=== PATIENT | female | born 1990 | race Caucasian/White ===

== ENCOUNTER 2023-06-25 17:56 | Emergency (ER) | payer OTHER, SELFPAY ==
[2023-06-25 18:00] VITALS: BP 126/95; PULSE 96; RESP 18; TEMP 36.4; O2SAT 98; BMI 34.8
--- NOTE | 2023-06-25 18:05 | XR_ITS ---
The [address] [address] Patient Name: EM VALLEJO MRN: [id number] date: 1990 Sex: F Assigned Patient Location: ED.MAIN Current Patient Location: ER Accession/Order Number: [id number] Exam Date: 06/25/2023 18:43 Report Date: 06/25/2023 19:26 At the request of: FRANSISCA GUTIERREZ Procedure: XR knee RT 4V EXAM: XR knee RT 4V HISTORY: pain COMPARISON: None. TECHNIQUE: Views of the right knee. FINDINGS: No acute displaced fracture or dislocation. No significant joint space narrowing. There is a joint effusion. No bony destruction. XR/XR knee RT 4V IMPRESSION: No acute bony abnormality. Joint effusion. Electronically authenticated by: CORNELIO TORRES Date: 06/25/2023 19:26
--- NOTE | 2023-06-25 18:13 | ED.LOWEXI1 ---
HPI - Extremity Injury (Lower) General Chief Complaint: Extremity Injury, Lower Stated Complaint: KNEE PAIN Time Seen by Provider: 06/25/23 18:05 History of Present Illness HPI Narrative: Patient is a 32-year-old female who presents to the emergency department for the evaluation of right knee pain. She states pain began one week ago and has worsened in the last several days. She denies any mechanism of injury or trauma. She reports significant pain with weightbearing. She has not had any redness, drainage. No medications taken prior to arrival. Pain is located in the anterolateral aspect of the right knee. Pain is worse with flexion and extension of the right knee. Patient has not seen her primary care provider or specialist for this pain, she is tearful at initial interview. She is not concerned for . Related Data Previous Rx's Medication Instructions Recorded ketorolac 10 mg tablet 10 mg PO TID PRN pain #10 tabs 06/25/23 methocarbamol 750 mg tablet 750 mg PO TID PRN pain #20 tabs 06/25/23 methylprednisolone 4 mg tablets in See Rx Instructions .Route 06/25/23 a dose pack (Medrol (Amos)) .COMPLEX #21 ea Allergies Allergy/AdvReac Type Severity Reaction Status Date / Time CECLOR Allergy Unknown Uncoded 06/25/23 18:03 Review of Systems ROS Constitutional Denies: fever or chills Ears, nose, mouth, and throat Denies: throat pain or neck pain Respiratory Denies: shortness of breath Gastrointestinal Denies: nausea or vomiting Musculoskeletal Reports: extremity pain and limited range of motion; Denies: back pain or neck pain Integumentary/Breast Denies: rash Neurological Denies: headache Hematologic/Lymphatic Denies: easy bruising PFSH PFSH Social History Smoking status: Current every day smoker Exam Narrative Exam Narrative: Gen.: Awake, alert, in no distress Head: Normocephalic, atraumatic ENT: Moist mucous membranes Respiratory: No respiratory distress Extremities: Right knee with mild joint effusion noted, limited flexion and extension due to pain with diffuse tenderness of the right knee. 2+ right DP pulse. No tenderness of the right calf or ankle. No obvious deformity Psych: Tearful Neuro: No focal neuro deficit Skin: Warm, dry, intact Constitutional Vital Signs, click to edit/add: Last Vital Signs Temp 97.6 F 06/25/23 18:00 Pulse 96 H 06/25/23 18:00 Resp 18 06/25/23 18:00 BP 126/95 H 06/25/23 18:00 Pulse Ox 98 06/25/23 18:00 O2 Del Method Room Air 06/25/23 18:00 Course Vital Signs Vital signs: Vital Signs Temperature 97.6 F 06/25/23 18:00 Pulse Rate 96 H 06/25/23 18:00 Respiratory Rate 18 06/25/23 18:00 Blood Pressure 126/95 H 06/25/23 18:00 Pulse Oximetry 98 06/25/23 18:00 Oxygen Delivery Method Room Air 06/25/23 18:00 Temperature 97.6 F 06/25/23 18:00 Pulse Rate 96 H 06/25/23 18:00 Respiratory Rate 18 06/25/23 18:00 Blood Pressure 126/95 H 06/25/23 18:00 Pulse Oximetry 98 06/25/23 18:00 Oxygen Delivery Method Room Air 06/25/23 18:00 MDM - Extremity Injury (Lower) MDM Narrative Medical decision making narrative: Exam is consistent with soft tissue pain, x-rays of the right knee with no evidence of fracture or dislocation. Patient placed in an Bridger wrap, knee immobilizer and given crutches. She was provided with a work note an orthopedic referral. She'll be started on NSAIDs, muscle relaxants and Medrol Dosepak. Return to the Emergency Room if symptoms change or worsen. She is neurovascularly intact at discharge. Medical Records Attestation: I reviewed the patient's medical records. Imaging Data X-ray right knee: Attestation: I personally reviewed and interpreted this imaging study as follows: My impression: NAD Discharge Plan Discharge Chief Complaint: Extremity Injury, Lower Clinical Impression: Pain in right knee Patient Disposition: Home, Self-Care Time of Disposition Decision: 18:47 Condition: Good Mode of Transportation: Private Vehicle Prescriptions / Home Meds: New ketorolac 10 mg tablet 10 mg PO TID PRN (Reason: pain) Qty: 10 0RF methocarbamol 750 mg tablet 750 mg PO TID PRN (Reason: pain) Qty: 20 0RF methylprednisolone [Medrol (Amos)] 4 mg tablets,dose pack See Rx Instructions .ROUTE .COMPLEX Qty: 21 0RF Rx Instructions: Taper as directed Instructions: Knee Pain (ED) Additional Instructions: Follow up with orthopedics - Dr. Guzman - [phone] or [facility] [phone] Stand Alone Forms: Portal Instructions Referrals: Physician,Non-Staff, MD [Primary Care Provider] - 1 week Discharge Date/Time: 06/25/23 19:05
[2023-06-25] MEDS: KETOROLAC TROMETHAMINE 60 MG/2 ML VIAL IM (18:33)
--- NOTE | 2023-06-25 19:35 | PC.NURSE ---
19:00 catarina wrap knee immbolizer and crutches provided and placed. Circulation intact prior to and after placement.
== END 2023-06-25 19:05 | disposition home or self-care (01) ==
PROVIDERS: Emergency Provider Emergency Medicine
DX: M25.561 Pain in right knee (principal); F17.210 Nicotine dependence, cigarettes, uncomplicated
CPT/HCPCS: 73564; 96372; 99284

== ENCOUNTER 2024-01-23 11:48 | Emergency (ER) | payer OTHER, SELFPAY ==
[2024-01-23 12:02] VITALS: BP 130/69; PULSE 95; RESP 18; TEMP 36.8; O2SAT 100; BMI 31.2
--- NOTE | 2024-01-23 12:07 | XR_ITS ---
The [address] [address] Patient Name: EM VALLEJO MRN: [id number] date: 1990 Sex: F Assigned Patient Location: ER Current [facility] Accession/Order Number: [id number] Exam Date: 01/23/2024 12:35 Report Date: 01/23/2024 12:56 At the request of: ANTIONE BAUTISTA Procedure: XR knee TYESHA 4V EXAM: XR knee TYESHA 4V HISTORY: swelling bilat bilateral knee pain COMPARISON: Right knee study dated 06/25/2023, left knee study dated 09/24/2016 TECHNIQUE: 4 views of the right knee were obtained. FINDINGS: No definite acute fracture or dislocation. Minimal medial spurring. Minimal posterior patellar spurring. No evidence of sizable suprapatellar joint effusion. No significant soft tissue swelling. 3 views of the left knee were obtained, patellar view could not be obtained due to patient inability to bend the knee. FINDINGS: No definite acute fracture or dislocation. Minimal medial spurring. Small area of sclerosis in the medial femoral condyle compatible with bone island. No evidence of sizable suprapatellar joint effusion. Mild soft tissue swelling suggested anteriorly. XR/XR knee TYESHA 4V IMPRESSION: Bilateral knee study demonstrates degenerative changes as described. Mild soft tissue swelling suggested anteriorly on the left. Follow-up as needed. Electronically authenticated by: JAUN BLANKENSHIP Date: 01/23/2024 12:56
--- NOTE | 2024-01-23 13:16 | US_ITS ---
The [address] [address] Patient Name: EM VALLEJO MRN: [id number] date: 1990 Sex: F Assigned Patient Location: ER Current Patient Location: ER Accession/Order Number: [id number] Exam Date: 01/23/2024 13:36 Report Date: 01/23/2024 14:08 At the request of: DEANNE PUENTES Procedure: US venous doppler LE LT EXAM: US venous doppler LE LT HISTORY: posterior knee pain COMPARISON: None TECHNIQUE: Utilizing color-flow duplex scanning and Doppler flow analysis, deep venous system of the left leg was evaluated. FINDINGS: There is normal compressibility seen throughout. There is gross patency identified. Augmentation is seen. There is no evidence of focal area of increased echogenicity within the deep venous system to suggest thrombosis. Visualized greater and lesser saphenous veins of the superficial venous system appear unremarkable. US/US venous doppler LE LT IMPRESSION: Grossly unremarkable imaging study of the deep venous system of the left leg as described, no definite evidence of deep venous thrombosis can be identified. Electronically authenticated by: JAUN BLANKENSHIP Date: 01/23/2024 14:08
[2024-01-23] MEDS: HYDROCODONE/ACET 5-325 MG TABLET 1 TAB PO (14:10)
[2024-01-23] MEDS: IBUPROFEN 600 MG TABLET PO (14:11)
--- NOTE | 2024-01-23 14:58 | ED.GENADUL1 ---
Documented by User: TRAN Paige 01/23/24 15:10 HPI - General Adult General Chief complaint: Extremity Injury, Lower Stated complaint: bilateral knee pain Time Seen by Provider: 01/23/24 12:55 Source: patient Mode of arrival: walk-in Limitations: no limitations History of Present Illness HPI narrative: 33-year-old female presents to the emergency department with complaint of bilateral knee pain. Locates pain to the outside of her right knee. This started about 2 days ago. She then developed pain to the back of her left knee. Has been under evaluation by Dr. Guzman for problems with her knees. Pain worse with palpation or movement. Denies any specific injury, motor or sensory changes, paresthesias. Denies any chest pain, shortness of breath. Patient is a smoker, does have a Mirena. Denies any recent travel. Quality:?as above Severity:?moderate Timing:?As above Context: Normal setting and activity? Modifying factors:?Pain worse with palpation, movement Associated symptoms: None Related Data Previous Rx's Medication Instructions Recorded hydrocodone 5 mg-acetaminophen 325 1 tab PO Q4H PRN pain 3 days #8 01/23/24 mg tablet tabs ibuprofen 600 mg tablet 600 mg PO QID pain, swelling #20 01/23/24 tabs Allergies Allergy/AdvReac Type Severity Reaction Status Date / Time CECLOR Allergy Unknown Uncoded 06/25/23 18:03 Review of Systems ROS Narrative CONST: Denies activity change, weakness CHEST: Denies chest pain PULM: Denies shortness of breath MS: +arthralgias.? Denies joint swelling, myalgias, gait problem SKIN: Denies color change, wound NEURO: Denies numbness, paresthesias, weakness PFSH PFSH Social History Smoking status: Current every day smoker Exam Narrative Exam Narrative: Vital signs noted Nurses notes reviewed CONST: Nontoxic, well appearing, well nourished, in no distress.? HENT: normocephalic, atraumatic. CV: 2+ palpable bilat DP pulse MS: right knee: +tenderness to the lateral joint line.? No tenderness to the medial joint line, posterior fossa, patella.? No swelling, ecchymosis, discoloration, crepitus, deformity, instability, warmth.? ROM limited due to pain, can perform flexion to a degree. Patient can fully extend the knee.? Strength 5/5. No laxity Left knee: Patient has tenderness to the posterior fossa. No tenderness to the medial or lateral joint lines, patellar region. No swelling, ecchymosis, discoloration, crepitus, deformity, instability, warmth. Range of motion full flexion and extension. Strength 5/5. No laxity NEURO: Sensory intact throughout and distal to the injury SKIN: intact, warm, dry.? No abrasion, laceration. No erythema PSYCHIATRIC: normal mood, affect Constitutional Vital Signs, click to edit/add: Last Vital Signs Temp 98.2 F 01/23/24 12:02 Pulse 95 H 01/23/24 12:02 Resp 18 01/23/24 12:02 BP 130/69 01/23/24 12:02 Pulse Ox 100 01/23/24 12:02 O2 Del Method Room Air 01/23/24 12:02 Course Reevaluation(s) Reevaluation #1: On reevaluation, pain improved. Discussed with patient results, plan, and disposition. She is agreeable with plan. Time: 15:04 Vital Signs Vital signs: Vital Signs Temperature 98.2 F 01/23/24 12:02 Pulse Rate 95 H 01/23/24 12:02 Respiratory Rate 18 01/23/24 12:02 Blood Pressure 130/69 01/23/24 12:02 Pulse Oximetry 100 01/23/24 12:02 Oxygen Delivery Method Room Air 01/23/24 12:02 Temperature 98.2 F 01/23/24 12:02 Pulse Rate 95 H 01/23/24 12:02 Respiratory Rate 18 01/23/24 12:02 Blood Pressure 130/69 01/23/24 12:02 Pulse Oximetry 100 01/23/24 12:02 Oxygen Delivery Method Room Air 01/23/24 12:02 Medical Decision Making MDM Narrative Medical decision making narrative: This is a pleasant 33-year-old female who presented to the emergency department with complaint of bilateral knee pain. Right knee started with pain about 2 days ago. Locating to the outside of the knee. There is associated tenderness. Left knee began sometime after. Locates pain to the posterior aspect of the knee. Patient smokes, does have control device in place. Denies any chest pain, shortness of breath. Denies any recent injury to the knee. Denies motor or sensory changes, paresthesias. On arrival, afebrile, vital signs are stable. On exam, nontoxic patient in no distress. She has tenderness to the lateral joint line on the right. No other tenderness to the right knee. Range of motion is a little limited due to this pain. Strength, neurovascularly intact. Left knee has tenderness posterior fossa. No gross edema noted to either leg. Left knee has full range of motion. Strength, range of motion, neurovascularly intact. X-ray imaging, per radiologist reveals no acute findings Ultrasound performed on the left lower extremity as she has pain in the posterior fossa which, per radiology report reveals no evidence of DVT. Pain to the right knee is along the lateral aspect, does not follow concern or suspicion for possible DVT as she has no posterior fossa, calf tenderness, medial thigh discomfort, tenderness, swelling, discoloration. Favor pain to the lateral collateral ligament region, pain to the left posterior fossa Less likely infectious etiology as patient is afebrile, there is no swelling, erythema present. Less likely DVT based on imaging Disposition ? The patient was discharged. Plan: Patient will be discharged to home. Condition at time of disposition: stable After review of OARRS, patient will be sent home with limited supply of [place] and Motrin Advised to follow up with her Ortho provider. Advised to return for any worsening and/or development of new, concerning signs or symptoms PLEASE NOTE: Portions of the medical record may have been produced using electronic leasing assistant and may contain errors with respect to translation of words which may not have been identified prior to finalization of the chart. Imaging Data Knee: Radiologist's impression: ITS Impressions Knee X-Ray 01/23/24 12:07 IMPRESSION: Bilateral knee study demonstrates degenerative changes as described. Mild soft tissue swelling suggested anteriorly on the left. Follow-up as needed. Electronically authenticated by: JAUN BLANKENSHIP Date: 01/23/2024 12:56 Venous Doppler Study 01/23/24 13:16 IMPRESSION: Grossly unremarkable imaging study of the deep venous system of the left leg as described, no definite evidence of deep venous thrombosis can be identified. Electronically authenticated by: JAUN BLANKENSHIP Date: 01/23/2024 14:08 Discharge Plan Discharge Stand Alone Forms: Portal Instructions Chief Complaint: Extremity Injury, Lower Clinical Impression: Acute pain of left knee Pain in right knee Qualifiers: Chronicity: acute Qualified Code(s): M25.561 - Pain in right knee Patient Disposition: Home, Self-Care Time of Disposition Decision: 14:37 Condition: Good Mode of Transportation: Private Vehicle Prescriptions / Home Meds: New ibuprofen 600 mg tablet 600 mg PO QID Qty: 20 0RF hydrocodone-acetaminophen 5-325 mg tablet 1 tab PO Q4H PRN (Reason: pain) 3 Days Qty: 8 0RF Instructions: Knee Pain (ED) Referrals: Jarod Guzman MD [Physician] - 01/26/24 Discharge Date/Time: 01/23/24 15:04 Documented by User: Abraham Chacon MD 01/23/24 20:11 HPI - General Adult General Chief complaint: Extremity Injury, Lower Stated complaint: bilateral knee pain Time Seen by Provider: 01/23/24 12:55 Related Data Previous Rx's Medication Instructions Recorded hydrocodone 5 mg-acetaminophen 325 1 tab PO Q4H PRN pain 3 days #8 01/23/24 mg tablet tabs ibuprofen 600 mg tablet 600 mg PO QID pain, swelling #20 01/23/24 tabs Allergies Allergy/AdvReac Type Severity Reaction Status Date / Time CECLOR Allergy Unknown Uncoded 06/25/23 18:03 PFSH PFSH Social History Smoking status: Current every day smoker Exam Constitutional Vital Signs, click to edit/add: Last Vital Signs Temp 98.2 F 01/23/24 12:02 Pulse 95 H 01/23/24 12:02 Resp 18 01/23/24 12:02 BP 130/69 01/23/24 12:02 Pulse Ox 100 01/23/24 12:02 O2 Del Method Room Air 01/23/24 12:02 Course Vital Signs Vital signs: Vital Signs Temperature 98.2 F 01/23/24 12:02 Pulse Rate 95 H 01/23/24 12:02 Respiratory Rate 18 01/23/24 12:02 Blood Pressure 130/69 01/23/24 12:02 Pulse Oximetry 100 01/23/24 12:02 Oxygen Delivery Method Room Air 01/23/24 12:02 Temperature 98.2 F 01/23/24 12:02 Pulse Rate 95 H 01/23/24 12:02 Respiratory Rate 18 01/23/24 12:02 Blood Pressure 130/69 01/23/24 12:02 Pulse Oximetry 100 01/23/24 12:02 Oxygen Delivery Method Room Air 01/23/24 12:02 Medical Decision Making MDM Narrative Medical decision making narrative: This is a pleasant 33-year-old female who presented to the emergency department with complaint of bilateral knee pain. Right knee started with pain about 2 days ago. Locating to the outside of the knee. There is associated tenderness. Left knee began sometime after. Locates pain to the posterior aspect of the knee. Patient smokes, does have control device in place. Denies any chest pain, shortness of breath. Denies any recent injury to the knee. Denies motor or sensory changes, paresthesias. On arrival, afebrile, vital signs are stable. On exam, nontoxic patient in no distress. She has tenderness to the lateral joint line on the right. No other tenderness to the right knee. Range of motion is a little limited due to this pain. Strength, neurovascularly intact. Left knee has tenderness posterior fossa. No gross edema noted to either leg. Left knee has full range of motion. Strength, range of motion, neurovascularly intact. X-ray imaging, per radiologist reveals no acute findings Ultrasound performed on the left lower extremity as she has pain in the posterior fossa which, per radiology report reveals no evidence of DVT. Pain to the right knee is along the lateral aspect, does not follow concern or suspicion for possible DVT as she has no posterior fossa, calf tenderness, medial thigh discomfort, tenderness, swelling, discoloration. Favor pain to the lateral collateral ligament region, pain to the left posterior fossa Less likely infectious etiology as patient is afebrile, there is no swelling, erythema present. Less likely DVT based on imaging Disposition ? The patient was discharged. Plan: Patient will be discharged to home. Condition at time of disposition: stable After review of OARRS, patient will be sent home with limited supply of [place] and Motrin Advised to follow up with her Ortho provider. Advised to return for any worsening and/or development of new, concerning signs or symptoms PLEASE NOTE: Portions of the medical record may have been produced using electronic leasing assistant and may contain errors with respect to translation of words which may not have been identified prior to finalization of the chart. I, Dr Chacon, have reviewed the above progress note and course of action in the ER; agree with the above. I have gone over history and physical, and discussed disposition and treatment plan with the patient. Imaging Data Knee: Radiologist's impression: ITS Impressions Knee X-Ray 01/23/24 12:07 IMPRESSION: Bilateral knee study demonstrates degenerative changes as described. Mild soft tissue swelling suggested anteriorly on the left. Follow-up as needed. Electronically authenticated by: JUAN BLANKENSHIP Date: 01/23/2024 12:56 Venous Doppler Study 01/23/24 13:16
== END 2024-01-23 15:04 | disposition home or self-care (01) ==
PROVIDERS: Emergency Provider Emergency Medicine
DX: M25.562 Pain in left knee (principal); M25.561 Pain in right knee; F17.210 Nicotine dependence, cigarettes, uncomplicated; Z97.5 Presence of (intrauterine) contraceptive device
CPT/HCPCS: 73564; 93971; 99284

== ENCOUNTER 2024-05-19 12:35 | Outpatient (OUT) | payer OTHER, SELFPAY ==
[2024-05-19 13:52] LABS: Erythrocyte Sedimentation Rate 59 mm/hr (<=20)
[2024-05-19 13:57] LABS: C Reactive Protein 0.87 mg/dL (<=0.50)
[2024-05-21 14:09] LABS: Rheumatoid Factor (RF) <10.0 IU/mL (<14.0)
[2024-05-21 16:10] LABS: ANA Direct Negative (Negative)
== END 2024-05-19 12:36 | disposition home or self-care (01) ==
PROVIDERS: Visit Provider Orthopaedic Surgery
DX: M25.461 Effusion, right knee (principal)
CPT/HCPCS: 36415; 81374; 85652; 86038; 86140; 86431

== ENCOUNTER 2024-12-11 20:12 | Outpatient (REF) | payer OTHER, SELFPAY ==
--- OUTSIDE RECORDS SUMMARY | 2024-12-11 20:16 | XMS_ITS | CCD ---
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 Performed By: #### COVID #### [facility] [employer] [address] [place] [id number] Manager Entry: Rm Rubio MD MRI ANKLE LT WO CONon 2021 MRI ANKLE LT WO CON EXAMINATION: MRI ANKLE LT WO CON HISTORY: Abnormal findings on diagnostic imaging of limbs COMPARISON: 03/03/2021, 11/21/2019 TECHNIQUE: A complete multi-planar examination was performed without contrast. FINDINGS: LATERAL LIGAMENTS AND SOFT TISSUE STRUCTURES TALOFIBULAR: Increased signal consistent with a strain CALCANEOFIBULAR: Normal. TIBIOFIBULAR: Increased signal anterior ligament consistent with strain PERONEAL TENDONS: Normal. No subluxation, tendinopathy, or tear. MEDIAL LIGAMENTS AND SOFT TISSUE STRUCTURES DELTOID COMPLEX: Normal. SPRING LIGAMENT: Normal. TARSAL TUNNEL: Normal. FLEXORS: Normal. OTHER TENDONS EXTENSORS: Normal. ACHILLES: Normal. No surrounding abnormality. PLANTAR FASCIA: Normal. No tear or surrounding soft tissue edema to suggest fasciitis. SINUS TARSI: Normal. No edema or synovitis to suggest sinus tarsi syndrome. BONES: No acute fracture, dislocation or osteochondral defect. Evidence of now removed internal fixation hardware along the tibiofibular syndesmosis and distal fibula. Degenerative changes with marginal osteophyte formation. Small amount of subchondral edema and cystic change along the distal fibula/lateral malleolus EFFUSIONS: Small ankle joint effusion OTHER: No other significant findings. IMPRESSION: Degenerative changes most significant along the distal fibula/lateral malleolus Strain of the talofibular and anterior tibiofibular ligaments Small tibiotalar joint effusion Electronically authenticated by: LILO MITCHELL Date: 2022-01-07 07:42 Normal [facility] XR ANKLE TYESHA MIN 3 VIEWSon 0 03-03-2021 XR ANKLE TYESHA MIN 3 VIEWS EXAMINATION: XR ANKLE TYESHA MIN 3 VIEWS, XR FOOT TYESHA MIN 3 VIEWS HISTORY: Bilateral ankle joint pain COMPARISON: 01/22/2020, 12/22/2018 FINDINGS: RIGHT FINDINGS: BONES: Normal. No significant arthropathy or acute abnormality. SOFT TISSUES: Negative. No visible soft tissue swelling. OTHER: Negative. LEFT FINDINGS: BONES: Evidence of prior stabilization with lucency through the distal tibial diaphysis. No acute fracture or dislocation SOFT TISSUES: Negative. No visible soft tissue swelling. OTHER: Negative. IMPRESSION: RIGHT CONCLUSION: No acute abnormality of the ankle or foot LEFT CONCLUSION: No acute abnormality of the ankle or foot Electronically authenticated by: LILO MITCHELL Date: 2021-03-03 10:31 Normal [facility] Coding Summaryon 10-13-2017 Coding Summary CODING DATE: 017 [facility] STATUS: Home PAYOR: Medicaid HMO ADMIT DX: REASON FOR VISIT DX: M79.662 Pain in left lower leg FINAL DX: PRINCIPAL: S86.112A Strain of other muscle(s) and tendon(s) of posterior muscle group at lower leg level, left leg, initial encounter SECONDARY: M62.831 Muscle spasm of calf Z72.0 Tobacco use PROCEDURES DOCTOR NAME DATE NOTE: The code number assigned matches the documented diagnosis and / or procedure in the patient's chart. However, the narrative phrase printed from the coding software may appear abbreviated, or result in slightly different terminology. Coded By: Sally Candelario Date Saved: 10/13/2017 09:02 am [facility] Coding Summary CODING DATE: 017 [facility] STATUS: Home PAYOR: Medicaid HMO ADMIT DX: REASON FOR VISIT DX: M79.662 Pain in left lower leg FINAL DX: PRINCIPAL: S86.112A Strain of other muscle(s) and tendon(s) of posterior muscle group at lower leg level, left leg, initial encounter SECONDARY: M62.831 Muscle spasm of calf Z72.0 Tobacco use PROCEDURES DOCTOR NAME DATE NOTE: The code number assigned matches the documented diagnosis and / or procedure in the patient's chart. However, the narrative phrase printed from the coding software may appear abbreviated, or result in slightly different terminology. Coded By: Sally Candelario Date Saved: 10/13/2017 08:58 am Normal [facility] .Auto Diff 1on 10-01-2017 Auto Baso % 0.3 % Normal 0.2-2.0 [facility] Comment on above: Performed By: #### [id number], [id number], 58527375, 3547928, [id number] ####[facility] (DEFAULT)[address] [place] [address] Auto [place] % 7 % Normal 1-12 [facility] Comment on above: Performed By: #### [id number], 7251376, 84684270, 8275924, [id number] ####[facility] (DEFAULT)[address] [place] [address] Auto Neut % 55 % Normal 44-88 [facility] Comment on above: Performed By: #### [id number], 5291839, 40854856, 0535030, [id number] ####[facility] (DEFAULT)[address] [place] [address] Baso Abs# 0.0 x10 Normal 0.0-0.2 [facility] Comment on above: Performed By: #### [id number], 5503486, 89935834, 3733383, [id number] ####[facility] (DEFAULT)[address] [place] [address] Eos Abs# 0.3 x10 Normal 0.0-0.4 [facility] Comment on above: Performed By: #### [id number], 7868806, 65366143, 7252815, [id number] ####[facility] (DEFAULT)[address] [place] [address] Eosinophils/100 leukocytes 3.8 % Normal 0.9-4.0 [facility] Comment on above: Performed By: #### [id number], 3106321, 04399668, 6166283, 1910074855 ####[facility] (DEFAULT)[address] [place] [address] Lymphocytes 2.5 x10 Normal 1.3-2.9 [facility] Comment on above: Performed By: #### [id number], 2800838, 67559502, 5532464, [id number] ####[facility] (DEFAULT)[address] [place] [address] Lymphocytes/100 leukocytes 34 % Normal 14-48 [facility] Comment on above: Performed By: #### [id number], 3290858, 48677436, 1989018, [id number] ####[facility] (DEFAULT)[address] [place] [address] [place] Abs# 0.5 x10 Normal 0.0-0.8 [facility] Comment on above: Performed By: #### [id number], 3079679, 36791636, 9525569, [id number] ####[facility] (DEFAULT)[address] [place] [address] Neut Abs# 4.1 x10 Normal 1.5-9.2 [facility] Comment on above: Performed By: #### [id number], 4967021, 69044251, 9475997, 4025565306 ####[facility] (DEFAULT)[address] [place] [address] CBC w/ Auto Diffon 7 Erythrocyte distribution width Auto Ratio (RBC) 12.9 % Normal 11.5-15.0 [facility] Comment on above: Performed By: #### [id number], 7544387, 74312544, 2726558, 9952464749 ####[facility] (DEFAULT)[address] [place] [address] Erythrocytes (RBC) 5.01 x10 Normal 3.70-5.30 [facility] Comment on above: Performed By: #### [id number], 8118902, 69325361, 6502922, 8451581501 ####[facility] (DEFAULT)[address] [place] [address] Hematocrit (HCT) 44.6 % High 33.7-40.4 [facility] Comment on above: Performed By: #### [id number], 6688637, 29938944, 0757707, 2037288858 ####[facility] (DEFAULT)[address] [place] [address] Hemoglobin mass conc (Bld) 15.6 g/dL Normal 11.3-15.9 [facility] Comment on above: Performed By: #### [id number], 1671223, 38546131, 6867268, 4633524950 ####[facility] (DEFAULT)[address] [place] [address] Man Diff? Auto Normal [facility] Comment on above: Performed By: #### [id number], 1425604, 38685203, 0572747, 9684513924 ####[facility] (DEFAULT)[address] [place] [address] MCH 31 pg Normal 24-34 [facility] Comment on above: Performed By: #### [id number], 6588249, 12888085, 9093238, 3602665348 ####[facility] (DEFAULT)[address] [place] [address] MCHC mass conc (RBC) 35 g/dL Normal 26-37 [facility] Comment on above: Performed By: #### [id number], 0033581, 76598287, 7221726, [id number] ####[facility] (DEFAULT)[address] [place] [address] MCV 89 fL Normal 81-100 [facility] Comment on above: Performed By: #### [id number], 2174963, 86045863, 1552452, 5226497979 ####[facility] (DEFAULT)[address] [place] [address] Platelet mean volume (PMV) 10.3 fL High 6.3-10.2 [facility] Comment on above: Performed By: #### [id number], 1635819, 88326058, 9820546, 1311623670 ####[facility] (DEFAULT)[address] [place] [address] Platelets 329 x10 Normal 138-427 [facility] Comment on above: Performed By: #### [id number], 4733126, 58564998, 4487378, 8846775845 ####[facility] (DEFAULT)[address] [place] [address] WBC (Leukocytes) 7.4 x10 Invalid Interpretation Code [facility] Comment on above: Performed By: #### [id number], 7630553, 66861479, 1196713, 0439243892 ####[facility] (DEFAULT)[address] [place] [address] [facility] Standardon 10-01-2017 eGFR (non-black) mL/min/{1.73_m2} Invalid Interpretation Code [facility] Comment on above: Performed By: #### [id number], 2218826, 09325277, 3226433, 1246462138 ####[facility] (DEFAULT)[address] [place] [address]70 eGFR (non-black) mL/min/{1.73_m2} Invalid Interpretation Code [facility] Comment on above: Result Comment: Chronic Kidney disease c ould be indicated at eGFRs of less than 60 ml/min/1.73m2. Kidney Failure is indicated at less than 15 ml/min/1.73m2 Performed By: #### 1 [id number], 0264244, 30895275, 0774830, [id number] ####[facility] (DEFAULT)[address] [place] [address] Albumin 4.3 g/dL Normal 3.5-5.0 [facility] Comment on above: Performed By: #### [id number], 1394945, 93177844, 6402376, 0264271532 ####[facility] (DEFAULT)[address] [place] [address]6785 Albumin/Globulin Ratio 1.3 {ratio} Low 1.4-2.6 [facility] Comment on above: Performed By: #### [id number], 1480582, 20490824, 2989474, 4209858895 ####[facility] (DEFAULT)[address] [place] [address] Alk Phos 80 IU/L Normal 32-91 [facility] Comment on above: Performed By: #### [id number], 6201113, 46026497, 3917798, 5470279898 ####[facility] (DEFAULT)[address] [place] [address] 23169 ALT/SGPT 42.0 IU/L Normal 14.0-54.0 [facility] Comment on above: Performed By: #### [id number], 4732478, 15710525, 8563021, 6971014986 ####[facility] (DEFAULT)[address] [place] [address] Anion gap 12.0 mmol/L Normal 5.0-19.0 [facility] Comment on above: Performed By: #### [id number], 7187679, 12057168, 5450386, 4694942886 ####[facility] (DEFAULT)[address] [place] [address] 11290 AST/SGOT 32 IU/L Normal 15-41 [facility] Comment on above: Performed By: #### [id number], 8672082, 44195884, 0798843, 9801112871 ####[facility] (DEFAULT)[address] [place] [address]887 Bili Total 0.4 mg/dL Normal 0.3-1.2 [facility] Comment on above: Performed By: #### [id number], 6353033, 49401933, 3711494, 5566441315 ####[facility] (DEFAULT)[address] [place] [address]99 BUN/Creatinine Ratio 13.0 mg/mg Normal 4.6-16.2 [facility] Comment on above: Performed By: #### [id number], 1890029, 40290465, 4724734, 0418274477 ####[facility] (DEFAULT)[address] [place] [address]851 Calcium 9.4 mg/dL Normal 8.9-10.3 [facility] Comment on above: Performed By: #### [id number], 2351555, 65499881, 2508597, 6013321696 ####[facility] (DEFAULT)[address] [place] [address]133 Chloride 106 mmol/L Normal 101-111 [facility] Comment on above: Performed By: #### [id number], 7695185, 82356537, 1704086, 2076457364 ####[facility] (DEFAULT)[address] [place] [address] 35822 CO2 23 mmol/L Normal 21-32 [facility] Comment on above: Performed By: #### [id number], 4728152, 57007276, 7506086, 7215582303 ####[facility] (DEFAULT)[address] [place] [address]47 Creatinine 0.83 mg/dL Normal 0.60-1.30 [facility] Comment on above: Performed By: #### [id number], 9080569, 19298400, 0920371, 5125907723 ####[facility] (DEFAULT)[address] [place] [address]42 Globulin 3.2 g/dL Normal 1.5-4.3 [facility] Comment on above: Performed By: #### [id number], 7778249, 59991132, 6322442, 6780501577 ####[facility] (DEFAULT)[address] [place] [address] 48920 Glucose mass conc 139.0 mg/dL High 74.0-118.0 [facility] Comment on above: Performed By: #### [id number], 3986849, 61994662, 3541440, 6453321294 ####[facility] (DEFAULT)[address] [place] [address]571 Osmolality 276 mOsm/L Invalid Interpretation Code [facility] Comment on above: Performed By: #### [id number], 2463489, 26344988, 7959667, [id number] ####[facility] (DEFAULT)[address] [place] [address] Potassium molar conc 3.5 mmol/L Low 3.6-5.1 [facility] Comment on above: Performed By: #### [id number], 6711512, 45904916, 4466935, 6817391447 ####[facility] (DEFAULT)[address] [place] [address] 13659 Protein 7.5 g/dL Normal 6.5-8.1 [facility] Comment on above: Performed By: #### [id number], 1571102, 43286462, 8529691, [id number] ####[facility] (DEFAULT)[address] [place] [address] 34583 Sodium 137.0 mmol/L Normal 136.0-144.0 [facility] Comment on above: Performed By: #### [id number], 6473372, 19137570, 0780992, [id number] ####[facility] (DEFAULT)[address] [place] [address] Urea nitrogen 11 mg/dL Normal 8-26 [facility] Comment on above: Performed By: #### [id number], 0764130, 85689966, 9151568, 1989057212 ####[facility] (DEFAULT)[address] [place] [address]50 D-Dimeron 10-01-2017 D-Dimer 0.43 mg/L FEU Normal 0.19-0.50 [facility] Comment on above: Result Comment: The INNOVANCE D-Dimer as say is intended for use as an aid in the diagnosis of venous thromboembolism (VTE) deep vein thrombosis (DVT) or pulmonary embolism (PE). The measurement of D-Dimer should not be used as an aid in the diagnosis of VTE in patients with:? Therapeutic dose anticoagulant therapy for >24 hours? Fibrinolytic therapy within previous 7 days? Trauma or surgery within previous 4 weeks? Disseminated malignancies? Aortic aneurysm? Sepsis, sever infections, pneumonia, severe skin infections? Liver cirrhosis ? Performed By: #### 1 [id number], 9495801, 22441267, 8587122, [id number] ####[facility] (DEFAULT)[address] [place] [address] ED Clinical Summaryon 2016 ED Clinical Summary [facility] [address] [place] [address] ed Clinical SummaryPERSON INFORMATIONName: EM VALLEJO Age: 27 Years Sex: FEMALEDOB: [birth year] MRN: Acct#:Visit Reason: Leg pain-swelling; PAIN LEFT LEG Arrival:10/01/17 16:27:00 Discharge: 10/01/17 17:49:00LOS: 000 01:22 Check In: 10/01/17 16:27:00 Checkout:10/01/17 17:49:00Address:[address] [facility] [address]WDH: Provider, UnlistedPROVIDER INFORMATIONProvider Role Assigned UnassignedDarin Cruz PA-C ED PA 10/01/17 16:34:05HessMarichuy ED Nurse 10/01/17 16:36:16 10/01/17 16:36:35HicRitu valdez ED Nurse 10/01/17 16:36:36VITALS INFORMATIONVital Sign Triage LatestTemperature TympanicTemperature Temporal ArteryPulse Rate 102 bpm 102 bpmO2 Sat 97 % 97 %Respiratory Rate 18 br/min 18 br/minBlood Pressure 106 mmHg/78 mmHg 106 mmHg/78 mmHgMEDICAL INFORMATIONMedications Given:Allergy Information:cefaclorPHYSICIAN DOCUMENTATIONPatient: EM VALLEJO : 27 years Sex: FEMALE : [birth year]Associated Diagnoses: Gastrocnemius strain; Muscle spasm of left calfAuthor: Darin Cruz PA-C InformationTime seen: Date & time 10/01/17 16:42:00.History source: Patient.Arrival mode: Private vehicle.History limitation: None.History of Present [id number] female presents with chief complaint of left lower leg pain. The patient states leg pain started on and has continued. She states this comes and goes and sometimes worse with walking. She denies any lower back pain or hip pain. She states just below the buttock on the left leg coming down into the left top of the thigh but mainly in the lower left calf region. She states muscle tightness. She states it feels like she has had a charley horse but has not been able to have a charley horse. Patient denies any numbness, tingling, weakness, left lower extremity. She denies any fever or chills. Denies any trauma or injury. She denies any recent falls. Patient states she is a smoker and smokes about 5 cigarettes per day. She does state that she uses Mirena ring for control. She denies any history of DVT or PE. She denies any chest pain or shortness of breath. She denies any redness, red streaking or swelling of the left lower leg. Patient has medication allergies to assist her. She is not taking any other current medications besides the Mirena ring.Review of SystemsConstitutional symptoms: No fever, no chills, no sweats, no weakness, no fatigue.Skin symptoms: No jaundice, no rash.Eye symptoms: Vision unchanged.ENMT symptoms: No ear pain, no sore throat, no nasal congestion, no sinus pain.Respiratory symptoms: No shortness of breath, no cough, no wheezing.Cardiovascular symptoms: No chest pain, no palpitations, no tachycardia, no syncope, no diaphoresis, no peripheral edema.Gastrointestinal symptoms: No abdominal pain, no nausea, no vomiting, no diarrhea, no constipation.Genitourinary symptoms: No dysuria, no hematuria.Musculoskeletal symptoms: Muscle pain, Patient states muscle pain and muscle cramping to the left posterior calf as well as the left posterior thigh region., no back pain, no Joint pain.Neurologic symptoms: No headache, no dizziness, no altered level of consciousness, no numbness, no tingling, no weakness. Additional review of systems information: All other systems reviewed and otherwise negative.Health StatusAllergies:Allergic Reactions (Selected)Severity Not DocumentedCefaclor- No reactions were documented..Medications: (Selected)Documented MedicationsDocumentedPROzac 20 mg oral capsule: 20 mg, 1 cap(s), PO, Daily, 0 Refill(s)traZODone 50 mg oral tablet: 50 mg, 1 tab(s), PO, Once a day (at bedtime), PRN: sleep, 0 Refill(s).Menstrual history: States she currently does not have menstrual cycles as she has the Mirena ring.. history: Patient states 3 sections..Past Medical/ Family/ Social HistorySocial history:Social & Psychosocial KngtrsBvimhwv64/25/2017 Smoking tobacco use: 5-9 cigarettes (between 1 Number used per day: 5 cigarettes a day.Physical ExaminationGeneral: Alert, no acute distress.Skin: Warm, dry, intact, no pallor, no rash.Head: Normocephalic, atraumatic.Neck: Supple.Eye: Pupils are equal, round and reactive to light, extraocular movements are intact, normal conjunctiva.Ears, nose, mouth and throat: Oral mucosa moist.Cardiovascular: Regular rate and rhythm, No murmur, Normal peripheral perfusion, No edema.Respiratory: Lungs are clear to auscultation, respirations are non-labored, breath sounds are equal, Symmetrical chest wall expansion.Chest wall: No tenderness, No deformity.Back: Nontender, Normal range of motion, Normal alignment, no step-offs, No localized spinal tenderness or paraspinal tenderness. No tenderness over SI joints bilaterally. No CVA tenderness..Musculoskeletal: Normal ROM, normal strength, no swelling, no deformity, Patient has a range of motion of left hip knee ankle and foot. She will move all toes the left foot. She has strong pedal and posterior tibialis pulses bilaterally. No pedal edema. No lower extremity edema. Patient states some tenderness to medial calf region and which appears to feel tight in nature. She states that tender to touch. She has no tenderness to palpation over posterior left thigh region. There is no edema noted. No deformities or crepitus. No overlying erythema or red streaking or any concerns of infection. No signs of abscess. She has good strength bilaterally. Homans sign does produce slight pain to the right medial calf where it was tender to touch..Gastrointestinal: Soft, Nontender, Non distended, Normal bowel sounds, No organomegaly.Neurological: Alert and oriented to person, place, time, and situation, No focal neurological deficit observed, normal sensory observed, normal motor observed, normal speech observed, normal coordination observed, Normal sensory, motor, speech, coordination is observed on exam..Lymphatics: No lymphadenopathy.Psychiatric: Cooperative, appropriate mood & affect, normal judgment.Medical Decision MakingOrders Launch OrdersLaboratory:Ddimer (Order): Blood, Stat collect, 10/01/17 16:53 EST, Lab CollectCMP Standard (Order): Blood, Stat collect, 10/01/17 16:53 EST, Lab CollectCBC w/ Auto Diff (Order): Blood, Stat collect, 10/01/17 16:53 EST, Lab Collect.Reexamination/ Gwozirrfihfx91:18 white blood cell count 7.4, hemoglobin 15.617:27 sodium 137, potassium 3.5, chloride 106, glucose 139, BUN 11, creatinine 0.83, BUN/creatinine ratio 13, calcium 9.4, d-dimer 0.43.17:28 I spoke with the pt in regards to her lab results being within normal limits. Joints appear within normal limits d-dimer is within normal limits at 0.43. Patient understands her labs within normal limits. Discussed muscle strain or muscle cramping. I suggested that the patient continues to take ibuprofen as needed for discomfort and to rest ice and elevate the left leg is to follow-up with her primary care doctor the next 3-5 days. I will also prescribe the patient a muscle relaxer for the next couple of days to see if this helps with her pain. Patient agrees with plan of treatment. She understands to return to the emergency department spelled any shortness of breath, calf pain, red streaking, erythema, edema or any concerns of infection. Patient requests a work note for today and possibly tomorrow if really is not feeling better. She lost the rest ice and elevate the left leg.Impression and PlanDiagnosisGastrocnemius strain ([id number] S86.119A, Discharge, Medical)Muscle spasm of left calf ([id number] M62.831, Discharge, Medical)PlanCondition: Stable.Disposition: Discharged: Time 10/01/17 17:33:00, to home.Prescriptions: Launch prescriptionsPharmacy:[facility] zaprine 10 mg oral tablet (Prescribe): 10 mg, 1 tab(s), PO, TID, for 7 day(s), PRN: for spasm, 21 tab(s), 0 Refill(s).Patient was given the following educational materials: Muscle Strain, Muscle Cramps and Spasms, Muscle Cramps and Spasms, Muscle Strain, Muscle Cramps and Spasms, Muscle Strain.Follow up with: Unlisted Provider Within 3 to 5 days Please follow-up with your primary care provider in the next 3-5 days. Continue taking ibuprofen or Tylenol as needed for leg pain or discomfort. You've also been given a prescription for Flexeril which is a muscle relaxer. You may take up to 3 times a day ?7 days for spasm. Do not drive or drink alcohol with this medication as it may make you drowsy. Return to the emergency department for any worsening or concerning symptoms in which we discussed..Counseled: Patient, Regarding diagnosis, Regarding diagnostic results, Regarding treatment plan, Regarding prescription, Patient indicated understanding of instructions.Notes: 27-year-old female presented with chief complaint left medial calf pain. Patient states this started on and comes and goes. She states is also at the posterior leg. She denies any left back hip or buttock pain. She rates it as a 6 out of 10 on the pain scale, indicating in nature. Patient had no spinal tenderness or paraspinal tenderness. No tenderness over SI joints. She has some left calf tenderness medially which appeared to be muscle tightness. No muscle spasm noted on exam. Patient states is also felt cramping in nature. No erythema edema or any concerns of infection. No pedal edema no lower extremity edema. Patient labs appeared within normal limits. Electrolytes within normal limits as well as d-dimer 0.43. Isolated with patient in regards to this. Patient's pulse rate came down into the 80s. The patient in regards to her left leg pain most likely being a muscle spasm or muscle strain of the gastrocnemius muscle only. Patient is prescribed Flexeril which she may take up to 3 times a day as needed for discomfort. She understands not to drive or drink alcohol medication as it may make her drowsy. Patient will continue taking Tylenol or ibuprofen she will rest ice and elevate the left lower extremity. Patient will follow-up with her primary care doctor the next 3-5 days. She will return to the emergency department for any worsening or concerning symptoms in which we discussed..DISCHARGE INFORMATION:Discharge Disposition: HomeDischarge Location: HomePATIENT EDUCATION INFORMATIONInstructions: Muscle Cramps and Spasms; Muscle StrainFollow-Up:With: Address: When:Unlisted Provider Within 3 to 5 daysComments:Please follow-up with your primary care provider in the next 3-5 days. Continue taking ibuprofen or Tylenol as needed for leg pain or discomfort. You've also been given a prescription for Flexeril which is a muscle relaxer. You may take up to 3 times a day ?7 days for spasm. Do not drive or drink alcohol with this medication as it may make you drowsy. Return to the emergency department for any worsening or concerning symptoms in which we discussed.DIAGNOSIS:Gastrocnem ius strain; Muscle spasm of left calfComment: [facility] ED Note - Physician Patient: EM VALLEJO : 27 years Sex: FEMALE : [birth year]Associated Diagnoses: Gastrocnemius strain; Muscle spasm of left calfAuthor: Nancy MORALES, Darin Morales InformationTime seen: Date & time 10/01/17 16:42:00.History source: Patient.Arrival mode: Private vehicle.History limitation: None.History of Present [id number] female presents with chief complaint of left lower leg pain. The patient states leg pain started on and has continued. She states this comes and goes and sometimes worse with walking. She denies any lower back pain or hip pain. She states just below the buttock on the left leg coming down into the left top of the thigh but mainly in the lower left calf region. She states muscle tightness. She states it feels like she has had a charley horse but has not been able to have a charley horse. Patient denies any numbness, tingling, weakness, left lower extremity. She denies any fever or chills. Denies any trauma or injury. She denies any recent falls. Patient states she is a smoker and smokes about 5 cigarettes per day. She does state that she uses Mirena ring for control. She denies any history of DVT or PE. She denies any chest pain or shortness of breath. She denies any redness, red streaking or swelling of the left lower leg. Patient has medication allergies to assist her. She is not taking any other current medications besides the Mirena ring.Review of SystemsConstitutional symptoms: No fever, no chills, no sweats, no weakness, no fatigue.Skin symptoms: No jaundice, no rash.Eye symptoms: Vision unchanged.ENMT symptoms: No ear pain, no sore throat, no nasal congestion, no sinus pain.Respiratory symptoms: No shortness of breath, no cough, no wheezing.Cardiovascular symptoms: No chest pain, no palpitations, no tachycardia, no syncope, no diaphoresis, no peripheral edema.Gastrointestinal symptoms: No abdominal pain, no nausea, no vomiting, no diarrhea, no constipation.Genitourinary symptoms: No dysuria, no hematuria.Musculoskeletal symptoms: Muscle pain, Patient states muscle pain and muscle cramping to the left posterior calf as well as the left posterior thigh region., no back pain, no Joint pain.Neurologic symptoms: No headache, no dizziness, no altered level of consciousness, no numbness, no tingling, no weakness. Additional review of systems information: All other systems reviewed and otherwise negative.Health StatusAllergies:Allergic Reactions (Selected)Severity Not DocumentedCefaclor- No reactions were documented..Medications: (Selected)Documented MedicationsDocumentedPROzac 20 mg oral capsule: 20 mg, 1 cap(s), PO, Daily, 0 Refill(s)traZODone 50 mg oral tablet: 50 mg, 1 tab(s), PO, Once a day (at bedtime), PRN: sleep, 0 Refill(s).Menstrual history: States she currently does not have menstrual cycles as she has the Mirena ring.. history: Patient states 3 sections..Past Medical/ Family/ Social HistorySocial history:Social & Psychosocial EmtuaeCoihria41/25/2017 Smoking tobacco use: 5-9 cigarettes (between 1 Number used per day: 5 cigarettes a day.Physical ExaminationGeneral: Alert, no acute distress.Skin: Warm, dry, intact, no pallor, no rash.Head: Normocephalic, atraumatic.Neck: Supple.Eye: Pupils are equal, round and reactive to light, extraocular movements are intact, normal conjunctiva.Ears, nose, mouth and throat: Oral mucosa moist.Cardiovascular: Regular rate and rhythm, No murmur, Normal peripheral perfusion, No edema.Respiratory: Lungs are clear to auscultation, respirations are non-labored, breath sounds are equal, Symmetrical chest wall expansion.Chest wall: No tenderness, No deformity.Back: Nontender, Normal range of motion, Normal alignment, no step-offs, No localized spinal tenderness or paraspinal tenderness. No tenderness over SI joints bilaterally. No CVA tenderness..Musculoskeletal: Normal ROM, normal strength, no swelling, no deformity, Patient has a range of motion of left hip knee ankle and foot. She will move all toes the left foot. She has strong pedal and posterior tibialis pulses bilaterally. No pedal edema. No lower extremity edema. Patient states some tenderness to medial calf region and which appears to feel tight in nature. She states that tender to touch. She has no tenderness to palpation over posterior left thigh region. There is no edema noted. No deformities or crepitus. No overlying erythema or red streaking or any concerns of infection. No signs of abscess. She has good strength bilaterally. Homans sign does produce slight pain to the right medial calf where it was tender to touch..Gastrointestinal: Soft, Nontender, Non distended, Normal bowel sounds, No organomegaly.Neurological: Alert and oriented to person, place, time, and situation, No focal neurological deficit observed, normal sensory observed, normal motor observed, normal speech observed, normal coordination observed, Normal sensory, motor, speech, coordination is observed on exam..Lymphatics: No lymphadenopathy.Psychiatric: Cooperative, appropriate mood & affect, normal judgment.Medical Decision MakingOrders Launch OrdersLaboratory:Ddimer (Order): Blood, Stat collect, 10/01/17 16:53 EST, Lab CollectCMP Standard (Order): Blood, Stat collect, 10/01/17 16:53 EST, Lab CollectCBC w/ Auto Diff (Order): Blood, Stat collect, 10/01/17 16:53 EST, Lab Collect.Reexamination/ [id number]:18 white blood cell count 7.4, hemoglobin 15.617:27 sodium 137, potassium 3.5, chloride 106, glucose 139, BUN 11, creatinine 0.83, BUN/creatinine ratio 13, calcium 9.4, d-dimer 0.43.17:28 I spoke with the pt in regards to her lab results being within normal limits. Joints appear within normal limits d-dimer is within normal limits at 0.43. Patient understands her labs within normal limits. Discussed muscle strain or muscle cramping. I suggested that the patient continues to take ibuprofen as needed for discomfort and to rest ice and elevate the left leg is to follow-up with her primary care doctor the next 3-5 days. I will also prescribe the patient a muscle relaxer for the next couple of days to see if this helps with her pain. Patient agrees with plan of treatment. She understands to return to the emergency department spelled any shortness of breath, calf pain, red streaking, erythema, edema or any concerns of infection. Patient requests a work note for today and possibly tomorrow if really is not feeling better. She lost the rest ice and elevate the left leg.Impression and PlanDiagnosisGastrocnemius strain (QKG27-RP S86.119A, Discharge, Medical)Muscle spasm of left calf (TNJ90-TQ M62.831, Discharge, Medical)PlanCondition: Stable.Disposition: Discharged: Time 10/01/17 17:33:00, to home.Prescriptions: Launch prescriptionsPharmacy:cycloben zaprine 10 mg oral tablet (Prescribe): 10 mg, 1 tab(s), PO, TID, for 7 day(s), PRN: for spasm, 21 tab(s), 0 Refill(s).Patient was given the following educational materials: Muscle Strain, Muscle Cramps and Spasms, Muscle Cramps and Spasms, Muscle Strain, Muscle Cramps and Spasms, Muscle Strain.Follow up with: Unlisted Provider Within 3 to 5 days Please follow-up with your primary care provider in the next 3-5 days. Continue taking ibuprofen or Tylenol as needed for leg pain or discomfort. You've also been given a prescription for Flexeril which is a muscle relaxer. You may take up to 3 times a day ?7 days for spasm. Do not drive or drink alcohol with this medication as it may make you drowsy. Return to the emergency department for any worsening or concerning symptoms in which we discussed..Counseled: Patient, Regarding diagnosis, Regarding diagnostic results, Regarding treatment plan, Regarding prescription, Patient indicated understanding of instructions.Notes: 27-year-old female presented with chief complaint left medial calf pain. Patient states this started on and comes and goes. She states is also at the posterior leg. She denies any left back hip or buttock pain. She rates it as a 6 out of 10 on the pain scale, indicating in nature. Patient had no spinal tenderness or paraspinal tenderness. No tenderness over SI joints. She has some left calf tenderness medially which appeared to be muscle tightness. No muscle spasm noted on exam. Patient states is also felt cramping in nature. No erythema edema or any concerns of infection. No pedal edema no lower extremity edema. Patient labs appeared within normal limits. Electrolytes within normal limits as well as d-dimer 0.43. Isolated with patient in regards to this. Patient's pulse rate came down into the 80s. The patient in regards to her left leg pain most likely being a muscle spasm or muscle strain of the gastrocnemius muscle only. Patient is prescribed Flexeril which she may take up to 3 times a day as needed for discomfort. She understands not to drive or drink alcohol medication as it may make her drowsy. Patient will continue taking Tylenol or ibuprofen she will rest ice and elevate the left lower extremity. Patient will follow-up with her primary care doctor the next 3-5 days. She will return to the emergency department for any worsening or concerning symptoms in which we discussed..[Electronically Signed on: 10/01/2017 17:45 EST] Darin Cruz PA-C[Verified on: 10/01/2017 17:45 EST] Darin Cruz PA-C [facility] ED Patient Education Noteon 10-01-2017 ED Patient Education Note Education MaterialsOrthopedicsMuscle Cramps and SpasmsMuscle cramps and spasms occur when a muscle or muscles tighten and you have no control over this tightening (involuntary muscle contraction). They are a common problem and can develop in any muscle. The most common place is in the calf muscles of the leg. Both muscle cramps and muscle spasms are involuntary muscle contractions, but they also have differences: ? Muscle cramps are sporadic and painful. They may last a few seconds to a quarter of an hour. Muscle cramps are often more forceful and last longer than muscle spasms.? Muscle spasms may or may not be painful. They may also last just a few seconds or much longer.CAUSESIt is uncommon for cramps or spasms to be due to a serious underlying problem. In many cases, the cause of cramps or spasms is unknown. Some common causes are:? Overexertion. ?? Overuse from repetitive motions (doing the same thing over and over). ?? Remaining in a certain position for a long period of time. ?? Improper preparation, form, or technique while performing a sport or activity. ?? Dehydration. ?? Injury. ?? Side effects of some medicines. ?? Abnormally low levels of the salts and ions in your blood (electrolytes), especially potassium and calcium. This could happen if you are taking water pills (diuretics) or you are . ?Some underlying medical problems can make it more likely to develop cramps or spasms. These include, but are not limited to:? Diabetes. ?? Parkinson disease. ?? Hormone disorders, such as thyroid problems. ?? Alcohol abuse. ?? Diseases specific to muscles, joints, and bones. ?? Blood vessel disease where not enough blood is getting to the muscles. ?HOME CARE INSTRUCTIONS? Stay well hydrated. Drink enough water and fluids to keep your urine clear or pale yellow.? It may be helpful to massage, stretch, and relax the affected muscle.? For tight or tense muscles, use a warm towel, heating pad, or hot shower water directed to the affected area.? If you are sore or have pain after a cramp or spasm, applying ice to the affected area may relieve discomfort.? Put ice in a plastic bag.? Place a towel between your skin and the bag.? Leave the ice on for 15-20 minutes, 03-04 times a day.? Medicines used to treat a known cause of cramps or spasms may help reduce their frequency or severity. Only take jddc-rfd-fbkyxno or prescription medicines as directed by your caregiver.SEEK MEDICAL CARE IF:Your cramps or spasms get more severe, more frequent, or do not improve over time.MAKE SURE YOU:? Understand these instructions.? Will watch your condition.? Will get help right away if you are not doing well or get worse.This information is not intended to replace advice given to you by your health care provider. Make sure you discuss any questions you have with your health care provider.Document Released: 04/15/2003 Document Revised: 02/18/2014 Document Reviewed: 07/27/2016Juan R Interactive Patient Education ?2017 [employer]Muscle StrainA muscle strain is an injury that occurs when a muscle is stretched beyond its normal length. Usually a small number of muscle fibers are torn when this happens. Muscle strain is rated in degrees. First-degree strains have the least amount of muscle fiber tearing and pain. Second-degree and third-degree strains have increasingly more tearing and pain.Usually, recovery from muscle strain takes 1?2 weeks. Complete healing takes 5?6 weeks. CAUSESMuscle strain happens when a sudden, violent force placed on a muscle stretches it too far. This may occur with lifting, sports, or a fall.RISK FACTORSMuscle strain is especially common in athletes.SIGNS AND SYMPTOMSAt the site of the muscle strain, there may be:? Pain.? Bruising.? Swelling.? Difficulty using the muscle due to pain or lack of normal function.DIAGNOSISYour health care provider will perform a physical exam and ask about your medical history.TREATMENTOften, the best treatment for a muscle strain is resting, icing, and applying cold compresses to the injured area. ?HOME CARE INSTRUCTIONS? Use the CHONG method of treatment to promote muscle healing during the first 2?3 days after your injury. The CHONG method involves:? Protecting the muscle from being injured again.? Restricting your activity and resting the injured body part.? Icing your injury. To do this, put ice in a plastic bag. Place a towel between your skin and the bag. Then, apply the ice and leave it on from 15?20 minutes each hour. After the third day, switch to moist heat packs.? Apply compression to the injured area with a splint or elastic bandage. Be careful not to wrap it too tightly. This may interfere with blood circulation or increase swelling.? Elevate the injured body part above the level of your heart as often as you can.? Only take gtuf-mkp-znvghxn or prescription medicines for pain, discomfort, or fever as directed by your health care provider.? Warming up prior to exercise helps to prevent future muscle strains.SEEK MEDICAL CARE IF:? You have increasing pain or swelling in the injured area.? You have numbness, tingling, or a significant loss of strength in the injured area.MAKE SURE YOU:? Understand these instructions.? Will watch your condition.? Will get help right away if you are not doing well or get worse.This information is not intended to replace advice given to you by your health care provider. Make sure you discuss any questions you have with your health care provider.Document Released: 10/24/2006 Document Revised: 08/14/2014 Document Reviewed: 05/23/2014Juan R Interactive Patient Education ?2017 [employer]. Normal [facility] ED Patient Summaryon 017 ED Patient Summary [facility] - Emergency [id number] [place] [address] pATIENT DISCHARGE INSTRUCTIONSPatient InformationName: EM VALLEJO Age: 27 YearsDate of : [birth year]MRN: [id number] Visit: Leg pain-swelling; PAIN LEFT LEGArrival Time: 10/01/17 16:27:00Phone: Primary Care Physician: Provider, UnlistedAttending Physician: Sae Posey MDComment:Visit Diagnosis:Diagnoses This Visit Gastrocnemius strain (S86.119A) Leg pain-swelling ([id number]) Muscle spasm of left calf (M62.831)If you received any narcotics, sedation, or any other medication that causes drowsiness for the next 24 hours, unless otherwise directed:? Do not drive a car.? Do not operate machinery such as power tools, lawn mowers, drills, sewing machines, or stoves? Avoid alcoholic beverages and drugs for allergies, nerves, or sleep? Do not make important personal or business decisions or sign any legal documentsWith: Address: When:Unlisted Provider Within 3 to 5 daysComments:Please follow-up with your primary care provider in the next 3-5 days. Continue taking ibuprofen or Tylenol as needed for leg pain or discomfort. You've also been given a prescription for Flexeril which is a muscle relaxer. You may take up to 3 times a day ?7 days for spasm. Do not drive or drink alcohol with this medication as it may make you drowsy. Return to the emergency department for any worsening or concerning symptoms in which we discussed.Medication Information:The exam and treatment you received today in the [facility] Emergency Department were for an urgent problem and are not intended as complete care. It is important for you to follow up with a doctor, nurse practitioner, or physician?s assistant professor of art for ongoing care. If your symptoms become worse or you do not improve as expected and you are unable to reach your usual health care provider, you should return to the Emergency Department, we are available 24 hours a day.For those patients who have received Radiology results, the interpretation of your X-ray as given to you by our Emergency Department physician is only a preliminary report. The Radiologist will review your films and if there is a change in the diagnosis you will be notified by phone. Please make sure you have provided a working phone number so we can reach you if necessary.In the event that you had a lab culture while you were a patient in the Emergency Department, you will be notified by phone if there is a need to change your antibiotic. Please make sure you have provided a working phone number so we can reach you if necessary.[facility] Emergency Department has provided you with a complete list of medications post discharge. Please inform your trademark affixer/provider of your visit and for further instruction on these medications. Any specific questions regarding your chronic medications and dosages should be discussed with your primary care physician(s) and/or pharmacist. New MedicationsPrinted Prescriptionscyclobenzaprine (cyclobenzaprine 10 mg oral tablet) 1 tab(s) Oral 3 times a day as needed for spasm for 7 Days. Refills: 0.Medications to Continue That Have Not ChangedOther MedicationsFLUoxetine (PROzac 20 mg oral capsule) 1 cap Oral every day.traZODone (traZODone 50 mg oral tablet) 1 tab(s) Oral once a day (at bedtime) as needed sleep.Visit InformationAllergies:Substance Reaction Symptoms Type Commentscefaclor DrugVital Signs: Vitals and Measurements this Visit (last charted value for your 10/01/2017 visit) Vital Signs This Visit Temperature Temporal: 36.5 DegC Peripheral Pulse Rate: 102 bpm Respiratory Rate: 18 br/min Systolic Blood Pressure: 106 mmHg Diastolic Blood Pressure: 78 mmHg SpO2: 97 % Oxygen Therapy: Room air Measurements This Visit Height/Length Dosin.020 cm Height/Length Estimated: 160.020 cm Weight Dosin.790 kg Weight Estimated: 99.790 kgProblems List:Problem Onset CommentsNo Problems foundPatient EducationMuscle Cramps and SpasmsMuscle cramps and spasms occur when a muscle or muscles tighten and you have no control over this tightening (involuntary muscle contraction). They are a common problem and can develop in any muscle. The most common place is in the calf muscles of the leg. Both muscle cramps and muscle spasms are involuntary muscle contractions, but they also have differences: ? Muscle cramps are sporadic and painful. They may last a few seconds to a quarter of an hour. Muscle cramps are often more forceful and last longer than muscle spasms.? Muscle spasms may or may not be painful. They may also last just a few seconds or much longer.CAUSESIt is uncommon for cramps or spasms to be due to a serious underlying problem. In many cases, the cause of cramps or spasms is unknown. Some common causes are:? Overexertion. ?? Overuse from repetitive motions (doing the same thing over and over). ?? Remaining in a certain position for a long period of time. ?? Improper preparation, form, or technique while performing a sport or activity. ?? Dehydration. ?? Injury. ?? Side effects of some medicines. ?? Abnormally low levels of the salts and ions in your blood (electrolytes), especially potassium and calcium. This could happen if you are taking water pills (diuretics) or you are . ?Some underlying medical problems can make it more likely to develop cramps or spasms. These include, but are not limited to:? Diabetes. ?? Parkinson disease. ?? Hormone disorders, such as thyroid problems. ?? Alcohol abuse. ?? Diseases specific to muscles, joints, and bones. ?? Blood vessel disease where not enough blood is getting to the muscles. ?HOME CARE INSTRUCTIONS? Stay well hydrated. Drink enough water and fluids to keep your urine clear or pale yellow.? It may be helpful to massage, stretch, and relax the affected muscle.? For tight or tense muscles, use a warm towel, heating pad, or hot shower water directed to the affected area.? If you are sore or have pain after a cramp or spasm, applying ice to the affected area may relieve discomfort.? Put ice in a plastic bag.? Place a towel between your skin and the bag.? Leave the ice on for 15-20 minutes, 03-04 times a day.? Medicines used to treat a known cause of cramps or spasms may help reduce their frequency or severity. Only take pjby-dls-vbojezl or prescription medicines as directed by your caregiver.SEEK MEDICAL CARE IF:Your cramps or spasms get more severe, more frequent, or do not improve over time.MAKE SURE YOU:? Understand these instructions.? Will watch your condition.? Will get help right away if you are not doing well or get worse.This information is not intended to replace advice given to you by your health care provider. Make sure you discuss any questions you have with your health care provider.Document Released: 04/15/2003 Document Revised: 02/18/2014 Document Reviewed: 07/27/2016Yvonneevtonia Interactive Patient Education ?2017 [employer]Muscle StrainA muscle strain is an injury that occurs when a muscle is stretched beyond its normal length. Usually a small number of muscle fibers are torn when this happens. Muscle strain is rated in degrees. First-degree strains have the least amount of muscle fiber tearing and pain. Second-degree and third-degree strains have increasingly more tearing and pain.Usually, recovery from muscle strain takes 1?2 weeks. Complete healing takes 5?6 weeks. CAUSESMuscle strain happens when a sudden, violent force placed on a muscle stretches it too far. This may occur with lifting, sports, or a fall.RISK FACTORSMuscle strain is especially common in athletes.SIGNS AND SYMPTOMSAt the site of the muscle strain, there may be:? Pain.? Bruising.? Swelling.? Difficulty using the muscle due to pain or lack of normal function.DIAGNOSISYour health care provider will perform a physical exam and ask about your medical history.TREATMENTOften, the best treatment for a muscle strain is resting, icing, and applying cold compresses to the injured area. ?HOME CARE INSTRUCTIONS? Use the CHONG method of treatment to promote muscle healing during the first 2?3 days after your injury. The CHONG method involves:? Protecting the muscle from being injured again.? Restricting your activity and resting the injured body part.? Icing your injury. To do this, put ice in a plastic bag. Place a towel between your skin and the bag. Then, apply the ice and leave it on from 15?20 minutes each hour. After the third day, switch to moist heat packs.? Apply compression to the injured area with a splint or elastic bandage. Be careful not to wrap it too tightly. This may interfere with blood circulation or increase swelling.? Elevate the injured body part above the level of your heart as often as you can.? Only take amff-fhh-fxqzqqv or prescription medicines for pain, discomfort, or fever as directed by your health care provider.? Warming up prior to exercise helps to prevent future muscle strains.SEEK MEDICAL CARE IF:? You have increasing pain or swelling in the injured area.? You have numbness, tingling, or a significant loss of strength in the injured area.MAKE SURE YOU:? Understand these instructions.? Will watch your condition.? Will get help right away if you are not doing well or get worse.This information is not intended to replace advice given to you by your health care provider. Make sure you discuss any questions you have with your health care provider.Document Released: 10/24/2006 Document Revised: 08/14/2014 Document Reviewed: 05/23/2014Yvonneevtonia Interactive Patient Education ?2017 [employer]. Viruses or BacteriaWhat?s got you sick?Antibiotics only treat bacterial infections. Viral illnesses cannot be treated with antibiotics. When an antibiotic is not prescribed, ask your healthcare professional for tips on how to relieve symptoms and feel better. Usual CauseIllnessVirusesBacteria Antibiotic NeededCold/Runny Nose NOBronchitis/Chest Cold (in otherwise healthy children and adults) NOWhooping Cough YesFlu NOStrep Throat YesSore Throat (except strep) NOFluid in the middle ear (otitis media with effusion) NOUrinary Tract Infection YesAntibiotics Aren?t Always the Answerwww.cdc.gov/getsmart GET SMART Know When Antibiotics [place] Department of Health and Human ServicesCenters for Disease Control and Prevention July 2014 Normal [facility] Extra Redon 10-01-2017 Tube Collected Yes Invalid Interpretation Code [facility] Comment on above: Performed By: #### [id number] ####[facility] (DEFAULT)[address] [place] [address] Vital Signs Date Time Vital Sign Value Performing Clinician Lakesha conti 02-04-2022 13:10-0400 Diastolic blood pressure 82 mm[Hg] Fanny Alberts MD Work Phone: [facility] 02-04-2022 13:10-0400 Heart rate 79 /min Fanny Alberts MD Work Phone: [facility] 02-04-2022 13:10-0400 Respiratory rate 17 /min Fanny Alberts MD Work Phone: [facility] 02-04-2022 13:10-0400 SaO2% (BldA) [Mass fraction] 99 % Fanny Alberts MD Work Phone: [facility] 02-04-2022 13:10-0400 Systolic blood pressure 127 mm[Hg] Fanny Alberts MD Work Phone: [facility] 02-04-2022 13:00-0400 Body temperature 97.2 [degF] Fanny Alberts MD Work Phone: [facility] 02-04-2022 09:37-0400 Body height 160 cm Fanny Alberts MD Work Phone: [facility] 02-04-2022 09:37-0400 Body mass index (BMI) [Ratio] 36.67 kg/m2 Fanny Alberts MD Work Phone: [facility] 02-04-2022 09:37-0400 Body weight 93.89 kg Fanny Alberts MD Work Phone: [facility] 01-21-2022 09:56-0400 [facility] 01-21-2022 09:56-0400 Body mass index (BMI) [Ratio] 36.67 kg/m2 St 4 [facility] 01-21-2022 09:56-0400 Body weight 93.89 kg [facility] En[facility] Date Encounter Type Care Provider Facility Start: 07-30-2024 End: 07-31-2024 Emergency department patient visit [facility] Start: 07-30-2024 End: 07-30-2024 Emergency department patient visit [facility] Start: 05-15-2024 End: 05-15-2024 ambulatory Jarod Guzman MD Facility:[facility] Start: 10-27-2023 End: 10-27-2023 ambulatory [facility] Start: 02-04-2022 End: 02-04-2022 ambulatory [facility] Start: 02-04-2022 End: 02-04-2022 Subsequent hospital visit by physician Fanny Alberts MD Work Phone: [facility] Start: 01-31-2022 End: 02-01-2022 ambulatory NILES Stubbs [facility] Start: 01-31-2022 End: 01-31-2022 Patient encounter status [facility] Schedule [facility] Covid Screening Start: 01-31-2022 End: 01-31-2022 Subsequent hospital visit by physician Christin Covid Screening Schedule [facility] Cov[facility] Screening Comment on above: Preop testing (Prima ry Dx) Start: 01-21-2022 End: 01-26-2022 ambulatory [facility] Start: 01-21-2022 End: 01-25-2022 Subsequent hospital visit by physician Christin Granado Rm 4 [facility] Pre-Admit Testing Start: 01-05-2022 End: 01-06-[address] DOCTOR BEE Facility:[facility] Start: 03-03-2021 End: 03-04-[address] LILO MITCHELL Facility:[facility] Start: 10-02-2017 End: 02-21-2018 Ambulatory Unlisted Provider Facility:[facility] Start: 10-01-2017 End: 10-13-2017 Emergency department patient visit Unlisted Provider Facility:[facility] Procedures Date Procedure Procedure Detail Performing Clinician Start: 02-04-2022 Urine test visual color cmprsn alex Alberts MD Work Phone: Plan of Treatment Date Care Activity Detail Author Start: 03-02-2022 End: 03-02-2022 Patient encounter procedure 03/02/2022 Office Visit Gastroenterology Fanny Alberts MD [address] [place] [address] [address] [place] [address] [facility] Gastroenterology Start: 02-04-2022 End: 02-04-2022 Admission to same day surgery center 02/04/2022 Surgery Endoscopy Fanny Alberts MD [facility], [address] [place] [address] EGD ESOPHAGOGASTRODUODENOSCOPY [facility] Comment on above: EGD ESOPHAGOGASTRODUODENOSCOPY Start: 02-04-2022 Subsequent hospital visit by physician 02/04/2022 Hospital Encounter Endoscopy Fanny Alberts MD [address] [place] [address], [address] [place], [place] [id number] [facility] Start: 02-04-2022 End: 02-04-2022 Colonoscopy flx dx w/collj spec when pfrmd [facility] Start: 02-04-2022 End: 02-04-2022 Esophagogastroduodenoscopy transoral diagnostic [facility] Start: 01-31-2022 End: 01-29-2023 COVID-19 [facility] Work Phone: Comment on above: Expected: 01/31/2022, Expires: 3 Once for 1 Occurrenc es starting 01/31/2022 until 01/31/2022 Start: 01-31-2022 End: 01-31-2022 Patient encounter procedure 01/31/2022 Appointment Lab [facility] Covid Screening Start: 2021 Screening for malignant neoplasm of cervix [facility] Start: 07-08-2021 Influenza vaccination Flu vaccine (#1) [facility] Start: 2012 Screening for malignant neoplasm of cervix Pap smear [facility] Start: 2006 HIV screening HIV screen [facility] Start: 2003 Depression Screen Depression Screen [facility] Start: 2002 DTaP/Tdap/Td vaccine (5 - Tdap) DTaP/Tdap/Td vaccine (5 - Tdap) [facility] Start: 1997 Pneumococcal 0-64 years Vaccine (1 of 2 - PPSV23) Pneumococcal 0-64 years Vaccine (1 of 2 - PPSV23) [facility] Start: 1996 COVID-19 Vaccine (1) COVID-19 Vaccine (1) [facility] Start: 1992 Varicella vaccine (1 of 2 - 2-dose childhood series) Varicella vaccine (1 of 2 - 2-dose childhood series) [facility] Start: 1991 Hepatitis C screening Hepatitis C screen [facility] End: 02-04-2022 INITIATE PACU OXYGEN THERAPY PROTOCOL Initiate PACU Oxygen Therapy Protocol Respiratory Care Routine Continuous until discontinued starting 02/04/2022 [facility] Phone: Comment on above: Continuous until discontinued starting 0 02/04/2022 Oxygen therapy [[facility] Data Set] Initiate Oxygen Therapy Protocol Respiratory Care Routine Daily until discontinued starting 02/04/2022 [employer] Phone: Comment on above: Daily until discontinued starting 2021 Surgical Pathology Surgical Path ology Lab Routine Release Upon Ordering for 1 Occurrences starting 02/04/2022 [facility] Phone: Comment on above: Release Upon Ordering for 1 Occurrences starting 02/04/2022 End: 02-04-2022 SURGICAL PATHOLOGY REPORT SURGICAL PATHOLOGY REPORT Lab Routine Once for 1 Occurrences starting 02/04/2022 until 02/04/2022 [employer] Phone: Comment on above: Once for 1 Occurrences starting 02/05/20 until 02/04/2022 Payers Date Payer Category Payer Unknown 1990 Unknown [id number] 2.16.84 [id number] 1991 Unknown [id number] [id number] [id number] 1991 Unknown [id number] 2.16.8 [id number] 1991 Unknown [id number] 2.16.8 [id number] 1991 Unknown [id number] 2.16.8 [id number] 1991 Unknown [id number] 2.16. [id number] 1991 Unknown [id number] 2.16.8 [id number] 1991 Unknown [id number] 2.16.8 [id number] 1991 Unknown [id number] 2.16.84 [id number] 1958 Medicaid [id number] Social History Date Type Detail Facility Start: 11-19-2021 Tobacco smoking stat [facility] Smokes tobacco daily [employer] Phone: Start: 11-19-2021 Tobacco use and exposure Smokeless tobacco non-user [facility] Phone: Start: 01-21-2022 End: 02-04-2022 Alcohol intake Current drinker of alcohol (finding) [employer] Phone: Start: 11-19-2021 History SDOH Alcohol Comment rare [facility] Phone: Start: 1990 Sex Assigned At Not on file [employer] Phone: Start: 12-22-2021 End: 02-04-2022 Exposure to SARS-CoV-2 (event) Not sure [facility] History of Present illness Narrative 02-04-2022 Mary Segura RN - 02/04/2022 10:13 AM EDT Note Date & Type Note Facility 02-04-2022 History of Present illness Narrative Urine negative documented in this encounter [facility] Phone: History of Present illness Narrative 01-21-2022 Jennifer Perez RN - 01/21/2022 10:00 AM EDT Note Date & Type Note Facility 01-21-2022 History of Present illness Narrative Pre-op Instructions For Out-Patient Surgery Medication Instructions: Please stop herbs and any supplements now (includes vitamins and minerals). Please contact your surgeon and prescribing physician for pre-op instructions for any blood thinners. If you have inhalers/aerosol treatments at home, please use them the morning of your surgery and bring the inhalers with you to the hospital. Please take the following medications the morning of your surgery with a sip of water: None Surgery Instructions: 1. After midnight before surgery: Do not eat or drink anything, including water, mints, gum, and hard candy. You may brush your teeth without swallowing. No smoking, chewing tobacco, or street drugs. 2. Please shower or bathe before surgery. 3. Please do not wear any cologne, lotion, powder, deodorant, jewelry, piercings, perfume, makeup, nail english, hair accessories, or hair spray on the day of surgery. Wear loose comfortable clothing. 4. Leave your valuables at home. Bring a storage case for any glasses/contacts. 5. An adult who is responsible for you MUST drive you home and should be with you for the first 24 hours after surgery. 6. If having out-patient knee and foot surgeries, please arrange for planned crutches, walker, or wheelchair before arriving to the hospital. The Day of Surgery: Arrive at [facility] Surgery Entrance at the time directed by your surgeon and check in at the desk. If you have a living will or healthcare power of tax attorney, please bring a copy. You will be taken to the pre-op holding area where you will be prepared for surgery. A physical assessment will be performed by a nurse practitioner or household manager. Your IV will be started and you will meet your anesthesiologist. When you go to surgery, your family will be directed to the surgical waiting room, where the doctor should speak with them after your surgery. After surgery, you will be taken to the recovery room then when you are awake and stable you will go to the short stay unit for preparation to be discharged. If you use a Bi-PAP or C-PAP machine, please bring it with you and leave it in the car in case it is needed in recovery room. Instructions read to Em and understanding verbalized. 02/04/22 EGD & Colonoscopy documented in this encounter [facility] Phone: Evaluation note Note Date & Type Note Facility Evaluation note Diagnosis Preop testing- Primary Preoperative examination, unspecified documented in this encounter [facility] Phone: Evaluation note Note Date & Type Note Facility Evaluation note Diagnosis Melena Blood in stool documented in this encounter [facility] Phone: Hospital Discharge instructions Instructions Note Date & Type Note Facility Hospital Discharge instructions Ora Rainey RN - 02/04/2022 Images from the original note were not included. Colonoscopy: What to Expect at Home Your Recovery After you have a colonoscopy, you will stay at the clinic for 1 to 2 hours until the medicines wear off. Then you can go home, but you will need to arrange for a ride. Your doctor will tell you when you can eat and do your other usual activities. Your doctor will talk to you about when you will need your next colonoscopy. The results of your test and your risk for colorectal cancer will help your doctor decide how often you need to be checked. After the test, you may be bloated or have gas pains. You may need to pass gas. If a biopsy was done or a polyp was removed, you may have streaks of blood in your stool (feces) for a few days. This care sheet gives you a general idea about how long it will take for you to recover. But each person recovers at a different pace. Follow the steps below to get better as quickly as possible. How can you care for yourself at home? Activity Rest as much as you need to after you go home. You should be able to go back to your usual activities the day after the test. Diet SOFT & LIGHT 1ST MEAL-AVOID GASSY/GREASY FOODS TODAY Follow your doctor s directions for eating. Drink plenty of fluids (unless your doctor has told you not to) to replace the fluids that were lost during the colon prep. Do not drink alcohol. Medicines If polyps were removed or a biopsy was done during the test, your doctor may tell you not to take aspirin or other anti-inflammatory medicines, such as ibuprofen (Advil, Motrin) and naproxen (Aleve), for a few days. Other instructions For your safety, you should not drive or operate machinery until the medicine effects are gone and you can think clearly. Your doctor may tell you not to drive or operate machinery until the day after your test. Do not sign legal documents or make major decisions until the medicine effects are gone and you can think clearly. The anesthesia medicine can make it hard for you to fully understand what you are agreeing to. Follow-up care is a carmona part of your treatment and safety. Be sure to make and go to all appointments, and call your doctor if you are having problems. It's also a good idea to know your test results and keep a list of the medicines you take. Call your Doctor if you have any of the following: Passing blood rectally or vomiting blood (it may be red or black). Persistent nausea or vomiting. Severe abdominal or chest pain, not relieved by passing gas. Fever of 100 or more, chills or excessive sweating. Redness or swelling at the IV site. If you experience shortness of breath or severe chest pain, call 911. Where can you learn more? Go to https://OuiCar.LightUp.or g and sign in to your [employer] account. Enter E264 in the Search Health Information box to learn more about Colonoscopy: What to Expect at Home. If you do not have an account, please click on the Sign Up Now link. [employer]. Care instructions adapted under license by [employer]. This care instruction is for use with your licensed healthcare professional. If you have questions about a medical condition or this instruction, always ask your healthcare professional. [employer] disclaims any warranty or liability for your use of this information. Content Version: 9.9.534415; Last Revised: December 27, 2012 EGD DISCHARGE INSTRUCTIONS Activity: Rest today. No driving, operating machinery, or making any important decisions today. May resume normal activity tomorrow. Diet: Following EGD eat slowly, chew food well, cut food into small pieces-Avoid greasy, spicy, crunchy foods X 48 hours. Call your Doctor if you have any of the following: -Passing blood rectally or vomiting blood (it may be red or black). -Persistent nausea/vomiting -Severe abdominal or chest pain not relieved with passing gas -Fever of 100 degrees or more -Redness or swelling at the IV site -Severe sore throat or neck pain Colon Polypectomy (Colon Polyp Removal) Definition A colon polypectomy is the removal of polyps from the inside lining of the colon (large intestine). A polyp is a mass of tissue. Some types of polyps have the potential to develop into cancer. Most polyps can be removed during a colonoscopy or sigmoidoscopy . A Colon Polyp 2010 [employer]. Reasons for Procedure The purpose of the surgery is to remove a polyp. It is done for cancer prevention. In rare cases, larger polyps can cause troublesome symptoms, such as rectal bleeding, abdominal pain, and bowel irregularities. A polyp removal will relieve these symptoms. Possible Complications Complications are rare, but no procedure is completely free of risk. If you are planning to have a polypectomy, your doctor will review a list of possible complications, which may include: Damage to the colon wall Bleeding Infection Adverse reaction to the sedative Factors that may increase the risk of complications include: Type, size, and location of the polyp Patient factors, such as blood-clotting disorders, substance abuse, or other diseases (eg, obesity , diabetes ) What to Expect Prior to Procedure Your doctor will likely do the following: Physical exam and health history Review of medicines Test your stool for hidden blood (called occult blood ) X-rays an exam that uses small amounts of radiation to make a picture of the inside of the body Barium enema x-ray exam that uses contrast to help better see the colon Diagnostic colonoscopy or sigmoidoscopyexamination of the inside of the intestine with an endoscope Your colon must be completely cleaned before the procedure. Any stool left in the intestine will block the view. This preparation may start several days before the procedure. Follow your doctor's instructions, which may include any of the following cleansing methods: Enemas fluid introduced into the rectum to stimulate a bowel movement Laxativesmedicines that cause you to have soft bowel movements A clear-liquid diet Oral cathartic medicinesa large container of fluid to drink, which stimulates a bowel movement Leading up to your procedure: Talk to your doctor about your medicines. You may be asked to stop taking some medicines up to one week before the procedure, like: Anti-inflammatory drugs (eg, aspirin) Blood thinners, like clopidogrel (Plavix) or warfarin (Coumadin) Iron supplements or vitamins containing iron. The night before, eat a light meal. Do not eat or drink anything after midnight. Wear comfortable clothing. If you have diabetes, ask your doctor if you need to adjust your insulin dose. Arrange for a ride home after the procedure. Anesthesia You will receive a sedative. This will help you relax. You will be drowsy but awake. Description of the Procedure You will be asked to lie on your side or on your back. A scope, a long flexible tube with a camera on the end, will be inserted through the anus. It will be slowly pushed through the rectum to the colon. The scope will also add air to open the colon. Using the scope, the doctor will locate the polyp. The polyp will be snipped off with a wire snare from the scope. In some cases, the polyp may be destroyed with an electric current. The electric current is also used to close the wound and stop bleeding. The polyps will then be removed for lab testing. When the doctor is finished, the scope will be slowly removed. For larger polyps, a laparoscopic surgical procedure may be needed. Special surgical tools will be inserted through small incisions in the abdomen. The tools will be used to locate and remove the polyp. How Long Will It Take? 30-60 minutes Will It Hurt? The special cleaning solution, laxatives, and/or enemas often cause discomfort. During and following the procedure, there is little or no pain. You may feel pressure, bloating, and/or cramping because of the air passed into the colon. This discomfort will go away with the passing of gas. Your doctor may prescribe pain medicine. If not, you can take non-prescription pain relievers for discomfort. Post-procedure Care At the [facility] The polyps will be sent to a lab for testing. At Home Expect a complete recovery within two weeks. To ensure a smooth recovery, be sure to follow your doctor's instructions , which may include: The sedative will make you drowsy. Do not drive, operate machinery, or make important decisions the day of the procedure. Return to your normal diet the same or next day. Avoid tea, coffee, cola drinks, alcohol, and spicy foods for at least 2-3 days following surgery. These can irritate the digestive system. To speed healing, resume normal activities as soon as you feel able. Most people feel well enough by the next day. Ask your doctor when you can participate in any rigorous exercise. Ask your doctor about when it is safe to shower, bathe, or soak in water. You will be scheduled for a follow-up colonoscopy in the future. It will be important to check for recurrence of polyps. Your doctor will discuss the results with you either the day of surgery or the following day. Call Your Doctor After arriving home, contact your doctor if any of the following occurs: Signs of infection, including fever and chills Redness, swelling, increasing pain, excessive bleeding, or discharge from the rectum (Up to cup of blood per day can be expected for up to 3-4 days following your polypectomy.) Black, tarry stools Severe abdominal pain Hard, swollen abdomen Inability to pass gas or stool Cough , shortness of breath, chest pain, or severe nausea or vomiting New, unexplained symptoms In case of emergency, CALL 911 . Last Reviewed: October 2010 Mathew Araya MD Updated: 02/11/2011 Sedation or General Anesthesia, Adult Care After Refer to this sheet in the next 24 hours. These instructions provide you with information on caring for yourself after your procedure. Your caregiver may also give you more specific instructions. Your treatment has been planned according to current medical practices, but problems sometimes occur. Call your caregiver if you have any problems or questions after your procedure. HOME CARE INSTRUCTIONS Do not participate in any activities that require you to be alert or coordinated. Do not: Drive. Swim. Ride a bicycle. Operate heavy machinery. Cook. Use power tools. Climb ladders. Work at heights. Take a bath. Do not drink alcohol. Do not make any important decisions or sign legal documents. Stay with an adult. The first meal following your procedure should be light and small. Avoid solid foods if you feel sick to your stomach (nauseous) or if you throw up (vomit). Drink enough fluids to keep your urine clear or pale yellow. Only take your usual medicines or new medicines if your caregiver approves them. Only take yvik-cfa-gtftyre or prescription medicines for pain, discomfort, or fever as directed by your caregiver. Keep all follow-up appointments as directed by your caregiver. SEEK IMMEDIATE MEDICAL CARE IF: You are not feeling normal or behaving normally after 24 hours. You have persistent nausea and vomiting. You are unable to drink fluids or eat food. You have difficulty urinating. You have difficulty breathing or speaking. You have blue or little skin. There is difficulty waking or you cannot be woken up. You have heavy bleeding, redness, or a lot of swelling where the sedative or anesthesia entered your skin (intravenous site). You have a rash. MAKE SURE YOU: Understand these instructions. Will watch your condition. Will get help right away if you are not doing well or get worse. Document Released: 10/24/2006 Document Revised: 04/24/2013 Document Reviewed: 02/21/2013 [facility] [place] Patient Information 2013 [employer]. High-Fiber Diet What Is Fiber? Dietary fiber is a form of carbohydrate found in plants that cannot be digested by humans. All plants contain fiber, including fruits, vegetables, grains, and legumes. Fiber is often classified into two categories: soluble and insoluble. Soluble fiber draws water into the bowel and can help slow digestion. Examples of foods that are high in soluble fiber include oatmeal, oat bran, barley, legumes (eg, beans and peas), apples, and strawberries. Insoluble fiber speeds digestion and can add bulk to the stool. Examples of foods that are high in insoluble fiber include whole-wheat products, wheat bran, cauliflower, green beans, and potatoes. Why Follow a High-Fiber Diet? A high-fiber diet is often recommended to prevent and treat constipation , hemorrhoids , diverticulitis , and irritable bowel syndrome . Eating a high-fiber diet can also help improve your cholesterol levels, lower your risk of coronary heart disease , reduce your risk of type 2 diabetes , and lower your weight. For people with type 1 or 2 diabetes, a high-fiber diet can also help stabilize blood sugar levels. How Much Fiber Should I Eat? A high-fiber diet should contain 20-35 grams of fiber a day. This is actually the amount recommended for the general adult population; however, most Americans eat only 15 grams of fiber per day. Digestion of Fiber Eating a higher fiber diet than usual can take some getting used to by your body's digestive system. To avoid the side effects of sudden increases in dietary fiber (eg, gas, cramping, bloating, and diarrhea), increase fiber gradually and be sure to drink plenty of fluids every day. Tips for Increasing Fiber Intake Whenever possible, choose whole grains over refined grains (eg, brown rice instead of white rice, whole-wheat bread instead of white bread). Include a variety of grains in your diet, such as wheat, rye, barley, oats, quinoa, and bulgur. Eat more vegetarian-based meals. Here are some ideas: black armendariz burgers, eggplant lasagna, and veggie tofu stir-morin. Choose high-fiber snacks, such as fruits, popcorn, whole-grain crackers, and nuts. Make whole-grain cereal or whole-grain toast part of your daily breakfast regime. When eating out, whether ordering a sandwich or dinner, ask for extra vegetables. When baking, replace part of the white flour with whole-wheat flour. Whole-wheat flour is particularly easy to incorporate into a recipe. High-Fiber Diet Eating Guide Food Category Foods Recommended Notes Grains Whole-grain breads, muffins, bagels, or kathryn bread [place] bread Whole-wheat crackers or crisp breads Whole-grain or bran cereals Oatmeal, oat bran, or grits Wheat germ Whole-wheat pasta and brown rice Read the ingredients list on food labels. Look for products that list whole as the first ingredient (eg, whole-wheat, whole oats). Choose cereals with at least 2 grams of fiber per serving. Vegetables All vegetables, especially asparagus, armendariz sprouts, broccoli, [place] sprouts, cabbage, carrots, cauliflower, celery, corn, greens, green beans, green pepper, onions, peas, potatoes (with skin), snow peas, spinach, squash, sweet potatoes, tomatoes, zucchini For maximum fiber intake, eat the peels of fruits and vegetablesjust be sure to wash them well first. Fruits All fruits, especially apples, berries, grapefruits, mangoes, nectarines, oranges, peaches, pears, dried fruits (figs, dates, prunes, raisins) Choose raw fruits and vegetables over juice, cooked, or cannedraw fruit has more fiber. Dried fruit is also a good source of fiber. Milk With the exception of yogurt containing inulin (a type of fiber), dairy foods provide little fiber. Add more fiber by topping your yogurt or cottage cheese with fresh fruit, whole grain or bran cereals, nuts, or seeds. Meats and Beans All beans and peas, especially Garbanzo beans, kidney beans, lentils, [place] beans, split peas, and lai beans All nuts and seeds, especially almonds, peanuts, [place] nuts, cashews, peanut butter, walnuts, sesame and sunflower seeds All meat, poultry, fish, and eggs Increase fiber in meat dishes by adding lai beans, kidney beans, black-eyed peas, bran, or oatmeal. If you are following a low-fat diet, use nuts and seeds only in moderation. Fats and Oils All in moderation Fats and oils do not provide fiber Snacks, Sweets, and Condiments Fruit Nuts Popcorn, whole-wheat pretzels, or trail mix made with dried fruits, nuts, and seeds Cakes, breads, and cookies made with oatmeal or whole-wheat flour Most snack foods do not provide much fiber. Choose snacks with at least 2 grams of fiber per serving. Last Reviewed: January 2011 Ashleigh Coto MS, MPH, RD Updated: 02/02/2011 Hemorrhoids: Care Instructions Overview Hemorrhoids are swollen veins that develop in the anal canal. Bleeding during bowel movements, itching, and rectal pain are the most common symptoms. Hemorrhoids can be uncomfortable at times, but rarely are they a seriousproblem. Most of the time, you can treat them with simple changes to your diet and bowel habits. These changes include eating more fiber and not straining to pass stools. Most hemorrhoids don't need surgery or other treatment unless they arevery large and painful or bleed a lot. Follow-up care is a carmona part of your treatment and safety. Be sure to make and go to all appointments, and call your doctor if you are having problems. It's also a good idea to know your test results and keep alist of the medicines you take. How can you care for yourself at home? Sit in a few inches of warm water (sitz bath) 3 times a day and after bowel movements. The warm water helps with pain and itching. Put ice on your anal area several times a day for 10 minutes at a time. Put a thin cloth between the ice and your skin. Follow this by placing a warm, wet towel on the area for another 10 to 20 minutes. Take pain medicines exactly as directed. ? If the doctor gave you a prescription medicine for pain, take it as prescribed. ? If you are not taking a prescription pain medicine, ask your doctor if you can take an rydl-qzs-gpxpyjc medicine. Keep the anal area clean, but be gentle. Use water and a fragrance-free soap, or use baby wipes or medicated pads such as Tucks. Wear cotton underwear and loose clothing to decrease moisture in the anal area. Eat more fiber. Include foods such as whole-grain breads and cereals, raw vegetables, raw and dried fruits, and beans. Drink plenty of fluids. If you have kidney, heart, or liver disease and have to limit fluids, talk with your doctor before you increase the amount of fluids you drink. Use a stool softener that contains bran or psyllium. You can save money by buying bran or psyllium (available in bulk at most [employer] stores) and sprinkling it on foods or stirring it into fruit juice. Or you can use a product such as Metamucil or Hydrocil. Practice healthy bowel habits. ? Go to the bathroom as soon as you have the urge. ? Avoid straining to pass stools. Relax and give yourself time to let things happen naturally. ? Do not hold your breath while passing stools. ? Do not read while sitting on the toilet. Get off the toilet as soon as you have finished. Take your medicines exactly as prescribed. Call your doctor if you think you are having a problem with your medicine. When should you call for help? Call 911 anytime you think you may need emergency care. For example, call if: You pass maroon or very bloody stools. Call your doctor now or seek immediate medical care if: You have increased pain. You have increased bleeding. Watch closely for changes in your health, and be sure to contact your doctor if: Your symptoms have not improved after 3 or 4 days. Where can you learn more? Go to https://ewelina.LightUp.or g and sign in to your [employer] account. Enter F228 in the Search Health Information box to learn more about Hemorrhoids: Care Instructions. If you do not have an account, please click on the Sign Up Now link. Current as of: July 15, 2021 Content Version: 13. [employer]. Care instructions adapted under license by [employer]. If you have questions about a medical condition or this instruction, always ask your healthcare professional. [employer] disclaims any warranty or liability for your use of this information. Gastritis: Care Instructions Your Care Instructions Gastritis is a sore and upset stomach. It happens when something irritates the stomach lining. Many things can cause it. These include an infection such as the flu or something you ate or drank. Medicines or a sore on the lining of the stomach (ulcer) also can cause it. Your belly may bloat and ache. You maybelch, vomit, and feel sick to your stomach. You should be able to relieve the problem by taking medicine. And it may helpto change your diet. If gastritis lasts, your doctor may prescribe medicine. Follow-up care is a carmona part of your treatment and safety. Be sure to make and go to all appointments, and call your doctor if you are having problems. It's also a good idea to know your test results and keep alist of the medicines you take. How can you care for yourself at home? If your doctor prescribed antibiotics, take them as directed. Do not stop taking them just because you feel better. You need to take the full course of antibiotics. Be safe with medicines. If your doctor prescribed medicine to decrease stomach acid, take it as directed. Call your doctor if you think you are having a problem with your medicine. Do not take any other medicine, including bqrh-xat-jpbunmh pain relievers, without talking to your doctor first. If your doctor recommends ayno-nvs-tedlkaw medicine to reduce stomach acid, such as Pepcid AC (famotidine), Prilosec (omeprazole), or Tagamet HB (cimetidine) follow the directions on the label. Drink plenty of fluids to prevent dehydration. Choose water and other clear liquids. If you have kidney, heart, or liver disease and have to limit fluids, talk with your doctor before you increase the amount of fluids you drink. Avoid foods that make your symptoms worse. These may include chocolate, mint, alcohol, pepper, spicy foods, high-fat foods, or drinks with caffeine in them, such as tea, coffee, tim, or energy drinks. If your symptoms are worse after you eat a certain food, you may want to stop eating it to see if your symptoms get better. When should you call for help? Call 911 anytime you think you may need emergency care. For example, call if: You vomit blood or what looks like coffee grounds. You pass maroon or very bloody stools. Call your doctor now or seek immediate medical care if: You start breathing fast and have not produced urine in the last 8 hours. You cannot keep fluids down. Watch closely for changes in your health, and be sure to contact your doctor if: You do not get better as expected. Where can you learn more? Go to https://OuiCar.LightUp.or Flytivity and sign in to your [employer] account. Enter Z536 in the Search Health Information box to learn more about Gastritis: Care Instructions. If you do not have an account, please click on the Sign Up Now link. Current as of: July 15, 2021 Content Version: 13.2 [employer]. Care instructions adapted under license by [employer]. If you have questions about a medical condition or this instruction, always ask your healthcare professional. [employer] disclaims any warranty or liability for your use of this information. documented in this encounter [employer] Work Phone: Reason for visit Narrative Auth/Cert Note Date & Type Note Facility Reason for visit Narrative Specialty Diagnoses / Procedures Referred By Amarjit ernst Referred To Contact Diagnoses Abdominal pain MELENA ABDOMINAL PAIN Procedures ID ESOPHAGOGASTRODUODENOSCOPY TRANSORAL DIAGNOSTIC ID COLONOSCOPY FLX DX W/COLLJ SPEC WHEN PFRMD ID EGD TRANSORAL BIOPSY SINGLE/MULTIPLE ID EGD BALLOON DILATION ESOPHAGUS <30 MM DIAM ID COLONOSCOPY W/BIOPSY SINGLE/MULTIPLE ID COLSC FLX W/RMVL OF TUMOR POLYP LESION SNARE TQ EGD ESOPHAGOGASTRODUODENOSCOPY COLONOSCOPY DIAGNOSTIC Fanny Alberts MD [address], [address] [place] [address] [facility] [id number] [place] [address] Referral ID Status Reason Start Date Expiration Date Visits Re quested Visits Authorized [id number] 1 1 [facility] [employer] Phone: Summary Purpose Family History No Family History Records FoundNo Family History Records FoundNo Family History Records FoundNo Family History Records FoundNo Family History Records Found Advance Directives No Advanced Directives Records FoundNo Advanced Directives Records FoundNo Advanced Directives Records FoundNo Advanced Directives Records FoundNo Advanced Directives Records Found Additional Source Comments INFORMATION SOURCE (unrecogn ized section and content) DATE CREATED AUTHOR 04/27/2018 [facility] DATE CREATED AUTHOR AUTHOR'S ORGANIZ ATION 01/08/2022 [facility] DATE CREATED AUTHOR AUTHOR'S ORGANIZ ATION 02/06/2022 [facility] DATE CREATED AUTHOR AUTHOR'S ORGANIZ ATION 05/27/2024 [facility] DATE CREATED AUTHOR AUTHOR'S ORGANIZ ATION 07/31/2024 [facility] Care Teams (unrecognized sec tion and content) Spring Coiler Relationship Specialty Start Date End Date Alexandra Valdez, DO [address] [place] [address] PCP - General [facility] Medicine 11/19/21 Spring Coiler Relationship Specialty Start Date End Date Alexandra Valdez, DO [address] [place] [address] PCP - General [facility] Medicine 11/19/21 Spring Coiler Relationship Specialty Start Date End Date Alexandra Valdez, DO [address] [place] [address] PCP - General Family Medicine 11/19/21 Scheduled Active and Recently Administ ered Medications (unrecognized section and content) Medication Order 02/02/2022 02/03/2022 02/04/2022 sodium chloride flush 0.9 % injection 5-40 mL 5-40 mL, IntraVENous, EVERY 12 HOURS SCHEDULED (2 times per day), First dose on Shavonne 02/04/22 at 1045, Until Discontinued, For Line Patency: Peripheral IV = 5 mL; Midline or Central Line = 10 mL/lumen. If following IV push medication, administer flush at same rate as the IV push. Flush volume is determined by type of infusion therapy being given. For non-viscous solutions use: Peripheral IV = 5 mL Midline or Central Line = 10 mL/lumen For viscous solutions (i.e. blood components, parenteral nutrition, contrast media, or after obtaining blood sample) use: Peripheral IV = 10 mL Midline or Central Line = 20 mL/lumen, PACU only 1045 (Due)2100 (Due) Continuous Medication Order 02/02/2022 02/03/2022 02/04/2022 lactated ringers infusion IntraVENous, at 125 mL/hr, CONTINUOUS, Starting on Shavonne 02/04/22 at 1000, Pre-op (day of surgery) 1014 (New Bag - Prov ider: Mary Segura, RN)1129 (NoRateChange - Provider: Ozzy Wolff APRN - DEVELOPMENT OFFICER) PRN Medication Order 02/02/2022 02/03/2022 02/04/2022 0.9 % sodium chloride infusion 25 mL, IntraVENous, at 100 mL/hr, PRN, If patient receiving piggyback infusions without ordered maintenance IV fluids or with frequent/long duration piggyback infusions, Starting on Shavonne 02/04/22 at 0936, Administer at the same rate as the piggyback being infused., Pre-op (day of surgery) 1310 (Stopped - Prov ider: Ora Rainey RN) 0.9 % sodium chloride infusion IntraVENous, at 5-250 mL/hr, PRN, if patient receiving piggyback infusions and maintenance fluids are not ordered OR KVO fluids to protect IV site / prevent frequent line interruptions/ long duration, Starting on Shavonne 02/04/22 at 1020, For piggyback infusion, administer at same rate as piggyback for a total of 25 mL. Enter 25 mL into dose field and piggyback rate into rate field of order If piggyback is infusing at a rate less than 100mL/hr, enter 25 mL into dose field and 100mL/hr into rate field of order For KVO fluids, enter rate of 20 mL/hr or less into rate field of order, PACU only diphenhydrAMINE (BENADRYL) injection 12.5 mg 12.5 mg, IntraVENous, ONCE PRN, 1 dose, Starting on Shavonne 02/04/22 at 1020, Until Shavonne 02/04/22 at 2359, Itching, PACU only HYDROmorphone (DILAUDID) injection 0.5 mg HYDROmorphone (DILAUDID) 1.5mg IV is equivalent to morphine 10mg IV, 0.5 mg, IntraVENous, EVERY 5 MIN PRN, 4 doses, Starting on Shavonne 02/04/22 at 1020, Until Discontinued, Pain Severe (7-10), Phase I - Initial therapy for severe pain., PACU only lidocaine PF 1 % injection 1 mL 1 mL, IntraDERmal, ONCE PRN, 1 dose, Starting on Shavonne 02/04/22 at 0936, Until Shavonne 02/04/22 at 2359, IV start, Pre-op (day of surgery) meperidine (DEMEROL) injection 12.5 mg 12.5 mg, IntraVENous, EVERY 5 MIN PRN, Starting on Shavonne 02/04/22 at 1020, Until Discontinued, Shivering, , May give every 5 minutes to max of 50mg., PACU only ondansetron (ZOFRAN) injection 4 mg 4 mg, IntraVENous, ONCE PRN, 1 dose, Starting on Shavonne 02/04/22 at 1020, Until Shavonne 02/04/22 at 2359, Nausea, PACU only sodium chloride flush 0.9 % injection 10 mL 10 mL, IntraVENous, PRN, Starting on Shavonne 02/04/22 at 0936, Until Discontinued, Line Care, After every IV line use, Pre-op (day of surgery) sodium chloride flush 0.9 % injection 5-40 mL 5-40 mL, IntraVENous, PRN, Starting on Shavonne 02/04/22 at 1020, Until Discontinued, Line Care, After every IV line use, For Line Patency: Peripheral IV = 5 mL; Midline or Central Line = 10 mL/lumen. If following IV push medication, administer flush at same rate as the IV push. Flush volume is determined by type of infusion therapy being given. For non-viscous solutions use: Peripheral IV = 5 mL Midline or Central Line = 10 mL/lumen For viscous solutions (i.e. blood components, parenteral nutrition, contrast media, or after obtaining blood sample) use: Peripheral IV = 10 mL Midline or Central Line = 20 mL/lumen, PACU only FOR RECORDS PERTAINING TO PATIENTS WHO ARE OR HAVE BEEN ENROLLED IN A CHEMICAL DEPENDENCY/SUBSTANCEABUSE PROGRAM, SOME INFORMATION MAY BE OMITTED. This clinical summary was aggregated from multiple sources. Caution should be exercised in using it in the provision of clinical care. This summary normalizes information from multiple sources, and as a consequence, information in this document may materially change the coding, format and clinical context of patient data. In addition, data may be omitted in some cases. CLINICAL DECISIONS SHOULD BE BASED ON THE PRIMARY CLINICAL RECORDS. [facility]. provides no warranty or guarantee of the accuracy or completeness of information in this document.
[2024-12-16 13:08] LABS: Age Gdln ACOG Testing Note (.); HPV Aptima Negative (Negative); IGP, Aptima HPV, rfx 16/18,45 Note (.)
== END 2024-12-11 20:13 | disposition home or self-care (01) ==
LOC: LAB 20:12
PROVIDERS: Visit Provider Obstetrics & Gynecology
DX: Z01.419 Encounter for gynecological examination (general) (routine) without abnormal findings (principal)
CPT/HCPCS: 87624; 88175